=== PATIENT | male | born 1945 | race Caucasian/White ===

== ENCOUNTER → 2018-03-26 14:49 | Outpatient (CLI) | payer MEDICARE, SELFPAY ==
[2018-03-26 18:22] LABS: Hemoglobin A1c 6.1 % (4.2-6.3)
[2018-03-26 18:28] LABS: AST(SGOT) 27 U/L (15-37); Alanine Aminotransfer ALT/SGPT 38 U/L (16-61); Albumin, Serum 3.7 g/dL (3.2-5.0); Alkaline Phosphatase 95 U/L (45-117); Bilirubin, Direct 0.06 mg/dL (0.00-0.30); Cholesterol 110 mg/dL (200); Globulin 4.5 g/dL (2.2-4.2); High Density Lipoprotein 37 mg/dL; Protein, Total 8.2 g/dL (6.4-8.2); Triglycerides 140 mg/dL; Very Low Density Lipoprotein 28 mg/dL (5-40)
== END ==
PROVIDERS: Family Provider Family Medicine; PCP Family Medicine; Visit Provider Family Medicine
DX: E78.00 Pure hypercholesterolemia, unspecified (principal); E11.9 Type 2 diabetes mellitus without complications
CPT/HCPCS: 36415; 80061; 80076; 83036

== ENCOUNTER → 2018-09-28 14:16 | Outpatient (CLI) | payer MEDICARE, SELFPAY ==
[2018-09-28 15:19] LABS: Absolute Lymphocyte Count 2.19 X10^3/ul (0.83-4.51); Basophil# 0.05 X10^3/uL; Basophil% 0.6 % (0-1); Eosinophil# 0.33 X10^3/uL; Eosinophils% 3.9 % (0-5); Hematocrit 43.8 % (40-54); Hemoglobin 14.9 g/dl (13.0-16.5); Lymphocyte # 2.19 X10^3/ul (4.0); Lymphocyte % 26.2 % (19-41); Mean Platelet Vol. 9.1 fl (6.2-12.0); Monocyte% 9.6 % (0-10); Neutrophil # 4.97 X10^3/uL (2.7-7.7); Neutrophil % 59.5 % (47-70); Platelet Count 272 K/mm3 (150-450); RBC Distribution Width CV 13.1 % (11.6-14.6); RBC Distribution Width SD 43.7 fl (35.1-43.9); Red Blood Count 4.66 M/mm3 (4.6-6.2); White Blood Count 8.4 K/mm3 (4.4-11.0)
[2018-09-28 15:22] LABS: Glucose, Dipstick Normal (Normal); Ketone-Dipstick Negative (Negative); Leukocyte Esterase-Dipstick 25 /ul (Negative); Nitrite-Dipstick Negative (Negative); Occult Blood-Urine Negative /ul (Negative); POSITIVE COUNT NO; POSITIVE DIFFERENTIAL NO; POSITIVE MORPHOLOGY NO; Protein-Dipstick 30 mg/dl (Negative); Urine Bilirubin Dipstick Negative (Negative); Urine Urobilinogen Normal (Normal)
[2018-09-28 15:26] LABS: ALB/GLOB Ratio 0.8 RATIO (0.9-2.4); AST(SGOT) 20 U/L (15-37); Alanine Aminotransfer ALT/SGPT 50 U/L (16-61); Albumin, Serum 3.6 g/dL (3.2-5.0); Alkaline Phosphatase 90 U/L (45-117); Anion Gap 11 (5-15); BUN 26 mg/dL (7-18); BUN/Creat Ratio 21.1 RATIO (10-20); Calcium,Total 8.6 mg/dL (8.5-10.1); Chloride 101 mmol/L (98-107); Cholesterol 128 mg/dL (200); Creatinine, Serum 1.23 mg/dL (0.70-1.30); EST Glomerular Filtration Rate 61 mL/min (>60); Est Glom Filt Rate - Afr Amer 74 mL/min (>60); Globulin 4.8 g/dL (2.2-4.2); Glucose 91 mg/dL (74-106); High Density Lipoprotein 33 mg/dL; Potassium 4.4 mmol/L (3.5-5.1); Protein, Total 8.4 g/dL (6.4-8.2); Sodium Level 137 mmol/L (136-145); Triglycerides 235 mg/dL; Very Low Density Lipoprotein 47 mg/dL (5-40)
[2018-09-28 15:29] LABS: Hemoglobin A1c 6.3 % (4.2-6.3)
[2018-09-28 15:36] LABS: Color, Urine YELLOW (Yellow)
[2018-09-28 15:37] LABS: Urine Clarity Clear (Clear)
== END ==
PROVIDERS: Family Provider Family Medicine; PCP Family Medicine; Referring Provider Family Medicine; Visit Provider Family Medicine
DX: Z00.00 Encounter for general adult medical examination without abnormal findings (principal); E78.00 Pure hypercholesterolemia, unspecified; I10 Essential (primary) hypertension; E11.9 Type 2 diabetes mellitus without complications
CPT/HCPCS: 36415; 80053; 80061; 81002; 83036; 85025

== ENCOUNTER → 2019-03-29 14:05 | Outpatient (CLI) | payer MEDICARE, SELFPAY ==
[2019-03-29 15:30] LABS: AST(SGOT) 34 U/L (15-37); Alanine Aminotransfer ALT/SGPT 59 U/L (16-61); Albumin, Serum 3.7 g/dL (3.2-5.0); Alkaline Phosphatase 83 U/L (45-117); Bilirubin, Direct 0.13 mg/dL (0.00-0.30); Cholesterol 124 mg/dL (200); Globulin 4.6 g/dL (2.2-4.2); High Density Lipoprotein 34 mg/dL; Protein, Total 8.3 g/dL (6.4-8.2); Triglycerides 171 mg/dL; Very Low Density Lipoprotein 34 mg/dL (5-40)
[2019-03-29 15:41] LABS: Hemoglobin A1c 6.9 % (4.2-6.3)
== END ==
PROVIDERS: Family Provider Family Medicine; PCP Family Medicine; Referring Provider Family Medicine; Visit Provider Family Medicine
DX: E78.00 Pure hypercholesterolemia, unspecified (principal); E11.9 Type 2 diabetes mellitus without complications
CPT/HCPCS: 36415; 80061; 80076; 83036

== ENCOUNTER → 2019-09-29 08:48 | Outpatient (CLI) | payer MEDICARE, SELFPAY ==
[2019-09-29 09:49] LABS: Color, Urine Yellow (Yellow); Glucose, Dipstick Normal (Normal); Ketone-Dipstick Negative (Negative); Leukocyte Esterase-Dipstick 25 /ul (Negative); Nitrite-Dipstick Negative (Negative); Occult Blood-Urine Negative /ul (Negative); Protein-Dipstick 30 mg/dl (Negative); Urine Bilirubin Dipstick Negative (Negative); Urine Clarity Clear (Clear); Urine Urobilinogen Normal (Normal)
[2019-09-29 09:57] LABS: Absolute Neutrophil Count 7.2 X10^3/uL (2.0-7.7); Basophil# 0.09 X10^3/uL; Basophil% 0.9 % (0-1); Eosinophil# 0.24 X10^3/uL; Eosinophils% 2.4 % (0-5); Hematocrit 42.9 % (40-54); Hemoglobin 14.3 g/dL (13.0-16.5); Lymphocyte % 15.8 % (19-41); Mean Corp Hgb Conc 33.3 g/dL (32-36); Mean Corpuscular Hgb 32.6 pg (27.0-32.0); Mean Corpuscular Volume 97.9 fL (80-94); Mean Platelet Vol. 8.9 fl (6.2-12.0); Monocyte# 0.97 X10^3/uL; Monocyte% 9.6 % (0-10); NRBC Flagged by Analyzer 0 % (0-5); Neutrophil # 7.16 X10^3/uL (2.7-7.7); Neutrophil % 70.5 % (47-70); Platelet Count 264 K/mm3 (150-450); RBC Distribution Width CV 12.6 % (11.6-14.6); RBC Distribution Width SD 45.8 fl (35.1-43.9); Red Blood Count 4.38 M/mm3 (4.6-6.2); White Blood Count 10.1 K/mm3 (4.4-11.0)
[2019-09-29 10:24] LABS: Hemoglobin A1c 6.8 % (4.2-6.3)
[2019-09-29 10:45] LABS: ALB/GLOB Ratio 0.7 RATIO (0.9-2.4); AST(SGOT) 24 U/L (15-37); Alanine Aminotransfer ALT/SGPT 51 U/L (16-61); Albumin, Serum 3.4 g/dL (3.2-5.0); Alkaline Phosphatase 90 U/L (45-117); Anion Gap 9 (5-15); BUN 32 mg/dL (7-18); Calcium,Total 8.5 mg/dL (8.5-10.1); Chloride 103 mmol/L (98-107); Cholesterol 108 mg/dL (200); Creatinine, Serum 1.39 mg/dL (0.70-1.30); EST Glomerular Filtration Rate 53 mL/min (>60); Est Glom Filt Rate - Afr Amer 64 mL/min (>60); Glucose 130 mg/dL (74-106); High Density Lipoprotein 30 mg/dL; PSA,Total - Annual Screen 0.77 ng/mL (0.00-4.00); Potassium 4.1 mmol/L (3.5-5.1); Protein, Total 8.4 g/dL (6.4-8.2); Sodium Level 138 mmol/L (136-145); Triglycerides 142 mg/dL; Very Low Density Lipoprotein 28 mg/dL (5-40)
== END ==
PROVIDERS: Family Provider Family Medicine; PCP Family Medicine; Referring Provider Family Medicine; Visit Provider Family Medicine
DX: Z00.00 Encounter for general adult medical examination without abnormal findings (principal); Z12.5 Encounter for screening for malignant neoplasm of prostate; E78.00 Pure hypercholesterolemia, unspecified; I10 Essential (primary) hypertension; E11.9 Type 2 diabetes mellitus without complications
CPT/HCPCS: 36415; 80053; 80061; 81002; 83036; 84153; 85025; G0103

== ENCOUNTER → 2021-10-22 12:37 | Outpatient (CLI) | payer MEDICARE, SELFPAY ==
[2021-10-22 15:16] LABS: Absolute Lymphocyte Count 2.38 X10^3/uL (0.83-4.51); Absolute Neutrophil Count 5.1 X10^3/uL (2.0-7.7); Basophil# 0.09 X10^3/uL; Eosinophil# 0.38 X10^3/uL; Eosinophils% 4.3 % (0-5); Hematocrit 40.8 % (40-54); Hemoglobin 14.8 g/dL (13.0-16.5); Lymphocyte # 2.38 X10^3/ul (0.83-4.51); Lymphocyte % 26.8 % (19-41); Mean Corp Hgb Conc 36.3 g/dL (32-36); Mean Corpuscular Hgb 33.9 pg (27.0-32.0); Mean Corpuscular Volume 93.6 fL (80-94); Mean Platelet Vol. 9.8 fl (6.2-12.0); Monocyte# 0.88 X10^3/uL; Monocyte% 9.9 % (0-10); NRBC Flagged by Analyzer 0 % (0-5); Neutrophil # 5.09 X10^3/uL (2.7-7.7); Neutrophil % 57.2 % (47-70); Platelet Count 281 K/mm3 (150-450); RBC Distribution Width CV 12.9 % (11.6-14.6); RBC Distribution Width SD 44.1 fl (35.1-43.9); Red Blood Count 4.36 M/mm3 (4.6-6.2); White Blood Count 8.9 K/mm3 (4.4-11.0)
[2021-10-22 15:34] LABS: Hemoglobin A1c 7.5 % (3.8-5.6)
[2021-10-22 15:37] LABS: ALB/GLOB Ratio 0.6 RATIO (0.9-2.4); AST(SGOT) 24 U/L (15-37); Alanine Aminotransfer ALT/SGPT 38 U/L (16-61); Albumin, Serum 3.1 g/dL (3.2-5.0); Alkaline Phosphatase 100 U/L (45-117); Anion Gap 8 (5-15); BUN 24 mg/dL (7-18); BUN/Creat Ratio 18.9 RATIO (10-20); Calcium,Total 8.7 mg/dL (8.5-10.1); Chloride 101 mmol/L (98-107); Cholesterol 125 mg/dL (200); Creatinine, Serum 1.27 mg/dL (0.70-1.30); EST Glomerular Filtration Rate 58 mL/min (>60); Est Glom Filt Rate - Afr Amer 71 mL/min (>60); Globulin 5.3 g/dL (2.2-4.2); Glucose 129 mg/dL (74-106); High Density Lipoprotein 33 mg/dL; Protein, Total 8.4 g/dL (6.4-8.2); Sodium Level 135 mmol/L (136-145); Triglycerides 166 mg/dL; Very Low Density Lipoprotein 33 mg/dL (5-40)
== END ==
PROVIDERS: PCP Family Medicine; Referring Provider Family Medicine; Visit Provider Family Medicine
DX: Z00.00 Encounter for general adult medical examination without abnormal findings (principal); E78.00 Pure hypercholesterolemia, unspecified; I10 Essential (primary) hypertension; E11.9 Type 2 diabetes mellitus without complications; Z12.5 Encounter for screening for malignant neoplasm of prostate
CPT/HCPCS: 36415; 80053; 80061; 83036; 84153; 85025; G0103

== ENCOUNTER → 2023-01-31 | Outpatient (CLI) | payer MEDICARE, SELFPAY ==
--- NOTE | 2023-02-11 11:00 | PET_ITS ---
EXAMINATION: FDG PET-CT INDICATIONS: A 77-year-old male with history of pulmonary nodularity. COMPARISON EXAMINATION: None available INDEX LESION SIZE SUV INTERPRETATION Right upper lung field, right upper lobe 26.1-mm 4.9 Fulfills quantitative criteria for viable neoplasm, histopathologic analysis recommended Right mid lung field posteriorly, right lower lobe 23.1-mm 3.7 Fulfills quantitative criteria for viable neoplasm, histopathologic analysis recommended TECHNIQUE: Following the intravenous administration of 14.35 mCi of F-18 deoxyglucose via the right antecubital fossa, multiplanar image acquisitions of the neck, chest, abdomen and pelvis to level of mid thigh, obtained at one hour post radiopharmaceutical administration contemporaneously interpreted with the current CT of the neck, chest, abdomen and pelvis, to level of mid thigh, dated 02/11/23 via coregistration reveals: BLOOD GLUCOSE LEVEL:?? 122 mg/dl?HEIGHT:?67 inches?WEIGHT: 280 lbs. FINDINGS: Head/Neck: There is no evidence of abnormal increased glucose metabolism in the pharyngeal mucosal space, parapharyngeal space, bilateral-lateral and anterior neck, hypopharynx and distribution of the laryngeal structures. The visualized portion of the cerebral cortical-subcortical structures demonstrate symmetric and preserved glucose metabolism. Prominent uptake is noted in the oral cavity associated with dental hardware placement, metallic reconstruction artifact. (Rosmery et al, AJR 179:1337, 2002). CHEST: An increase in radiopharmaceutical concentration is noted in two separate locations within the right upper-mid lung field to include both the right upper and lower lobes. The right upper lobe abnormality demonstrates a calculated maximal standard uptake value of 4.9. The maximal axial diameter of the metabolic, morphologic abnormality is 26.1-mm. The right lower lobe hypermetabolic focus demonstrates a calculated maximal standard uptake value of 3.7. The maximal axial diameter is 23.1-mm. Prominent uptake is noted in the descending thoracic aorta commensurate with activated leukocytes associated atherosclerotic plaque formation. Pertinent chest CT findings are as follows. There is atherosclerotic calcification defined in the thoracic aorta without evidence of dilatation-aneurysm formation. Coronary arterial calcification is observed. Mediastinal and bilateral subcentimeter axillary soft tissue densities are ametabolic. Several additional parenchymal densities noted in the bilateral hemithorax are non-glucose avid. Abdomen/Pelvis: Normal physiologic distribution of the radiopharmaceutical is apparent in the hepatic (6.02) and splenic parenchyma, both renal units, bladder and visualized intestinal tract. Pertinent abdomen and pelvis CT findings are as follows. Colonic diverticulosis is noted without evidence of diverticulitis. There is atherosclerotic calcification defined in the abdominal aorta without evidence of dilatation-aneurysm formation. Abdominal-pelvic arterial calcification is observed. Calcification appears evident in the pancreatic body. Bilateral inguinal soft tissue densities are ametabolic. Skeletal: Asymmetric muscle tension artifact is noted at the distribution of the left subscapularis muscle. Degenerative changes are noted in the cervical, thoracic and lumbar spine without evidence of increased radiopharmaceutical concentration. There are no well-defined sclerotic-lytic changes manifest on review of the appendicular-axial skeletal structures. PET/PET/CT Tumor Base -Thigh Init IMPRESSION: 1. ABNORMAL EXAMINATION INDICATIVE OF MALIGNANT VIABLE NEOPLASM. 2. Increased radiopharmaceutical concentration noted in both the posterior segment of the right upper lobe and superior segment of the right lower lobe fulfill quantitative criteria for viable neoplasm. Histopathologic analysis is recommended. (Valle et al, Annals of Internal Medicine, 138:724, 2003). 3. No other quantitatively significant hypermetabolic abnormalities are noted. Electronic Signature Primitivo Hummel D.O. Electronically Signed: Primitivo Hummel, at 10:31 EDT ,
== END | disposition home or self-care (01) ==
LOC: MTLAB 11:53
PROVIDERS: PCP Family Medicine; Referring Provider Internal Medicine Pulmonary Disease; Visit Provider Internal Medicine Pulmonary Disease
DX: R05.9 Cough, unspecified (principal)
CPT/HCPCS: 87070; 87205

== ENCOUNTER → 2023-02-11 | Outpatient (CLI) | payer MEDICARE, SELFPAY | END | disposition home or self-care (01) | LOC: ONC 10:33 | PROVIDERS: PCP Family Medicine; Referring Provider Internal Medicine Pulmonary Disease; Visit Provider Internal Medicine Pulmonary Disease | DX: R91.8 Other nonspecific abnormal finding of lung field (principal) | CPT/HCPCS: 78815; A9552 ==

== ENCOUNTER 2023-02-19 13:04 | Day surgery (SDC) | payer MEDICARE, SELFPAY ==
[2023-02-19] VITALS (13 sets, daily range): BP systolic 106–153; BP diastolic 46–125; PULSE 70–83; RESP 18–22; TEMP 36.3–36.6; O2SAT 84–96; BMI 46.0
--- NOTE | 2023-02-19 | FLU_PTH ---
PATIENT: ROSEMARY FERNÁNDEZ LOC: EN U#:[id number] AGE/SX: 77/M ROOM: RE02/19/[address]: Dr. Rosemary Doshi MD : 1945 BED: DIS: 02/19/2023 SPEC #: [id number] RECD: 02/19/23 16:18 STATUS: SMITA [place] #: [id number] PHILLIP: 02/19/23 00:[address]: Rosemary Doshi V DEPT: CYTOLOGY RECD BY: Geovanna Dimas ENTERED: 02/20/23 08:06 SP TYPE: Fluid OTHR DR: Dr. Lyle Ruiz MD Tissues: A - Bronchus of right upper lobe B - Bronchus of right upper lobe C - Bronchus of right upper lobe Procedures: Special Stain Group II Surgery Specimen Level IV Cytospin Fluid Cytology Other HEADER OPERATION: Bronchoscopy with fluoroscopy (MAC), biopsies, washings, brushings PRE-OP DIAGNOSIS: Lung nodule TISSUE SUBMITTED: A - Right upper lobe lung smears x4, B - Right upper lobe lung brush, C - Right upper lobe lung bronchioalveolar lavage DIAGNOSIS CYTOLOGY A. Right upper lobe lung brushings (smears): Positive for malignant cells, favor non-small cell carcinoma. B. Right upper lobe lung brush (cytospin and cell block): Positive for malignant cells, favor non-small cell carcinoma. C. Right upper lobe lung bronchioalveolar lavage (cytospin and cell block): Rare atypical epithelial cells present. AM:julius 02/21/2023 COMMENT Please correlate with surgical specimen [id number]. Case has been reviewed in consultation with Dr. Boles who concurs with the above diagnosis. IDC:SJ CYTOLOGY STUDY Slides are reviewed. CYTOLOGY GROSS A - Received are four smears labeled with the patient's name and designated per the requisition as RUL. Submitted for staining. B - Received is a metallic endoscopic cytobrush with adherent minute fragments of liu-red tissue brush in 2 ml of clear red fluid and labeled with the patient's name and and designated per the requisition as brush RUL. The material is dislodged from the brush and submitted for cytology preparation including cell block. C - Received is 25 ml of red bloody cloudy fluid labeled with the patient's name and and designated per the requisition as BAL RUL. Submitted for cytology preparation including cell block. / julius 02/20/2023 TC:0 CPT: 28922, 75159 x2, 05473 x2
--- NOTE | 2023-02-19 | LUNG_PTH ---
PATIENT: ROSEMARY FERNÁNDEZ LOC: EN U#:[id number] AGE/SX: 77/M ROOM: RE02/19/[address]: Dr. Rosemary Doshi MD : 1945 BED: DIS: 02/19/2023 SPEC #: [id number] RECD: 02/19/23 16:18 STATUS: SMITA MORRISONSteven #: [id number] PHILLIP: 02/19/23 00:[address]: Rosemary Doshi V DEPT: SURGICAL PATHOLOGY RECD BY: Geovanna Dimas ENTERED: 02/20/23 08:05 SP TYPE: LUNG BX OTHR DR: Dr. Lyle Ruiz MD Tissues: Lung, NOS Procedures: Surgery Specimen Level IV HEADER OPERATION: Bronchoscopy with fluoroscopy (MAC), biopsies, washings, brushings PRE-OP DIAGNOSIS: Lung nodule TISSUE SUBMITTED: Right upper lobe lung biopsy MICROSCOPIC DIAGNOSIS Right upper lobe lung, biopsy: Non-small cell carcinoma, squamous cell carcinoma. See comment. AM:julius 02/21/2023 AM:julius 03/20/2023 COMMENT Please correlate with cytology specimen [id number]. Immunohistochemistry ([id number]) supports the above diagnosis. This case was reviewed and diagnosis discussed with Dr. Jones on 03/20/2023. MICROSCOPIC DESCRIPTION Slides are reviewed. GROSS DESCRIPTION Received in fixative is one container labeled with the patient's name and designated right upper lobe biopsy. The specimen consists of multiple irregular fragments of light liu soft tissue that in aggregate measure 1.0 x 0.3 x 0.1 cm. The specimen is totally submitted in one cassette. / SJ:julius 02/20/2023 TC:0 CPT: 18513 ADDENDUM ADDENDUM ADDENDUM ADDENDUM ADDENDUM ADDENDUM ADDENDUM ADDENDUM 03/31/2023 14:54 ADDENDUM 03/31/2023 14:54 ADDENDUM 03/31/2023 14:54 ADDENDUM 03/31/2023 14:54 ADDENDUM 05/21/2023 09:21 ADDENDUM 03/31/2023 14:54 [facility] NGS GENE FUSION PANEL FROM [employer] INTERPRETATION: NEGATIVE: No pathogenic gene fusions detected involving ALK, OSIRIS, BRAF, CCND1, EGFR, FGFR1, FGFR2, FGFR3, MET, NRG1, NTRK1, NTRK2, NTRK3, PPARG, RAF1, RET, ROS1 or THADA. Please see complete report in e-chart or EMR PD-L1 (KEYTRUDA) IMMUNOHISTOCHEMICAL ANALYSIS FROM [employer] RESULTS: Tumor proportion score: <1% / Negative Please see complete report in e-chart or EMR
--- NOTE | 2023-02-19 | IMM_PTH ---
PATIENT: ROSEMARY FERNÁNDEZ LOC: EN U#:[id number] AGE/SX: 77/M ROOM: RE02/19/[address]: Dr. Rosemary Doshi MD : 1945 BED: DIS: 02/19/2023 SPEC #: [id number] RECD: 02/21/23 13:20 STATUS: SMITA RESteven #: [id number] PHILLIP: 02/19/23 00:[address]: Rosemary Doshi V DEPT: IMMUNOHISTOCHEMISTRY RECD BY: Homa Carlton ENTERED: 02/21/23 13:22 SP TYPE: IMMUNO OTHR DR: Dr. Lyle Ruiz MD Tissues: Right upper lobe of lung, NOS Procedures: Synapto (add) RCC (add) NAPSIN A (add) CD56 (add) CHROMO (add) CK20 (add) CK5-6 (add) CK7 (add) CK8 (add) HEP PAR (add) KI-67 (add) P53 (add) TTF1 (add) Pankeratin (initial) P40 (add) PSAP (add) NSE (add) S-100 (add) PHYSICIAN & INSTITUTION [place] [id number] SPECIMEN INFORMATION: Tissue Source: Right upper lobe lung biopsy Clinical Info: Lung nodule Specimen Number: [id number] CPT code: 24989, 33918 x17 METHODOLOGY: Deparaffinized sections of prefer/formalin-fixed tissue or PAP/DQ stained slides are incubated with monoclonal/polyclonal antibodies/oligonucleotide probes. Localization is made via biotin free immunoperoxidase method. Appropriate controls are performed and reacted as expected. Results on target cell population are indicated in the following table: RESULTS: ANTIBODY / CLONE RESULT AE1-3 (AE1/AE3/PCK26) positive CK7 (OV-TL12/30) negative CK8 (53vvhwB03) positive CK20 (KS20.8) negative S-100 (4C4.9) negative CD56 (123C3.D5) negative Chromo (LK2H10) negative Synapto (polyclonal) negative NSE Neuron Specific Enolase negative TTF-1 (8G7G3/1) negative Napsin A (Rabbit Polyclonal) negative RCC (PN-15) negative PSAP (PASE/4LJ) negative CK5-6 (D5 & 1684) positive P40 (BC28) positive P53 (DO-7) positive, >90% Ki-67 (30-9) positive, 80% HepPar (OCh1E5) negative These tests were developed and their performance characteristics determined by [facility]. They may not have been cleared or approved by the U.S. Food and Drug Administration. The FDA has determined that such clearance or approval is not necessary. The above immunohistochemical/dualISH markers are ordered and reviewed by the Pathologist. INTERPRETATION: Right upper lobe lung, biopsy: Squamous cell carcinoma. AM:julius 02/24/2023 Case has been reviewed in consultation with Dr. Boles who concurs with the above diagnosis. IDC:SJ
--- NOTE | 2023-02-19 | LUNG_PTH ---
PATIENT: ROSEMARY FERNÁNDEZ LOC: EN U#:[id number] AGE/SX: 77/M ROOM: RE02/19/[address]: Dr. Rosemary Doshi MD : 1945 BED: DIS: 02/19/2023 SPEC #: [id number] RECD: 02/19/23 16:18 STATUS: SMITA MORRISONSteven #: [id number] PHILLIP: 02/19/23 00:[address]: Rosemary Doshi V DEPT: SURGICAL PATHOLOGY RECD BY: Geovanna Dimas ENTERED: 02/20/23 08:05 SP TYPE: LUNG BX OTHR DR: Dr. Lyle Ruiz MD Tissues: Lung, NOS Procedures: Surgery Specimen Level IV HEADER OPERATION: Bronchoscopy with fluoroscopy (MAC), biopsies, washings, brushings PRE-OP DIAGNOSIS: Lung nodule TISSUE SUBMITTED: Right upper lobe lung biopsy MICROSCOPIC DIAGNOSIS Right upper lobe lung, biopsy: Non-small cell carcinoma, adenocarcinoma. See comment. AM:julius 02/21/2023 COMMENT Please correlate with cytology specimen [id number]. Immunohistochemistry ([id number]) supports the above diagnosis. MICROSCOPIC DESCRIPTION Slides are reviewed. GROSS DESCRIPTION Received in fixative is one container labeled with the patient's name and designated right upper lobe biopsy. The specimen consists of multiple irregular fragments of light liu soft tissue that in aggregate measure 1.0 x 0.3 x 0.1 cm. The specimen is totally submitted in one cassette. / SJ:julius 02/20/2023 TC:0 CPT: 57951
[2023-02-19] MEDS: Lactated Ringers 1,000 ML 15 ML IV (13:52)
[2023-02-19 14:20] LABS: Bedside Glucose 125 mg/dL (74-106)
[2023-02-19] MEDS: Phenylephrine 0.25% 15 ML NASAL.SRY 15 SPRAY NASAL (14:58)
[2023-02-19] MEDS: Lidocaine 2% (5ml sdv) 5 ML VIAL.MPF (15:52)
--- NOTE | 2023-02-19 16:07 | OP.BRONCH_ITS ---
Patient Name: Sampson Matias Procedure Date: 02/19/2023 2:43 PM Date of : 1945 Age: 77 Procedure: Bronchoscopy Indications: Right upper lobe nodule Providers: Sampson Doshi MD Referring MD: Lyle Ruiz Medicines: Monitored Anesthesia Care Complications: No immediate complications Procedure: Pre-Anesthesia Assessment: - A History and Physical has been performed. Patient meds and allergies have been reviewed. The risks and benefits of the procedure and the sedation options and risks were discussed with [Consent Obtained From]. All questions were answered and informed consent was obtained. Patient identification and proposed procedure were verified prior to the procedure by the nurse in the pre-procedure area. Mental Status Examination: alert and oriented. Airway Examination: small/crowded oropharyngeal airway and retrognathia. Respiratory Examination: clear to auscultation. CV Examination: RRR, no murmurs, no S3 or S4. ASA Grade Assessment: II - A patient with mild systemic disease. After reviewing the risks and benefits, the patient was deemed in satisfactory condition to undergo the procedure. The anesthesia plan was to use monitored anesthesia care (MAC). Immediately prior to administration of medications, the patient was re-assessed for adequacy to receive sedatives. The heart rate, respiratory rate, oxygen saturations, blood pressure, adequacy of pulmonary ventilation, and response to care were monitored throughout the procedure. The physical status of the patient was re-assessed after the procedure. After I obtained informed consent, the scope was passed under direct vision. Throughout the procedure, the patient's blood pressure, pulse, and oxygen saturations were monitored continuously. The bronchoscope was introduced through the left nostril and advanced to the tracheobronchial tree of both lungs. The procedure was accomplished without difficulty. The patient tolerated the procedure well. The total duration of the procedure was 45 minutes. Moderate Sedation: Moderate (conscious) sedation was personally administered by an anesthesia professional. The following parameters were monitored: oxygen saturation, heart rate, blood pressure, respiratory rate, EKG, adequacy of pulmonary ventilation, and response to care. Findings: The endotracheal tube is in good position. The visualized portion of the trachea is of normal caliber. The ramo is sharp. The tracheobronchial tree was examined to at least the first subsegmental level. Bronchial mucosa and anatomy are normal; there are no endobronchial lesions, and no secretions. Transbronchial biopsies of a nodule were performed in the posterior segment of the right upper lobe using forceps and sent for cell count, bacterial culture, viral smears & culture, and fungal & AFB analysis and cytology, routine cytology and histopathology examination. The procedure was guided by fluoroscopy. Transbronchial biopsy technique was selected because the sampling site was not visible endoscopically. Six biopsy passes were performed. Six biopsy samples were obtained. Fluoroscopy guided transbronchial brushings of a nodule were obtained in the posterior segment of the right upper lobe with a cytology brush and sent for routine cytology. One sample was obtained. Impression: - Right upper lobe nodule - The airway examination was normal. - Transbronchial lung biopsies were performed. - Transbronchial brushings were obtained. Recommendation: - Await test results. Procedure Code(s): --- Professional --- 99399, Bronchoscopy, rigid or flexible, including fluoroscopic guidance, when performed; with transbronchial lung biopsy(s), single lobe 28134, Bronchoscopy, rigid or flexible, including fluoroscopic guidance, when performed; with brushing or protected brushings Diagnosis Code(s): --- Professional --- R91.1, Solitary pulmonary nodule CPT copyright 2017 [employer]. All rights reserved. The codes documented in this report are preliminary and upon hiv counselor review may be revised to meet current compliance requirements. MD Sampson Rodriguez MD 02/19/2023 4:06:49 PM This report has been signed electronically. Number of Addenda: 0 Note Initiated On: 02/19/2023 2:43 PM
[2023-02-19] MEDS: Lidocaine Jelly 2% 20 ML Syringe (URO-JET) 1 APPLIC (16:12)
--- NOTE | 2023-02-19 16:15 | RAD_ITS ---
INDICATION: check for pnuemo post bronchoscopy EXAMINATION/TECHNIQUE: X-RAY - XR Chest 1 View COMPARISON: 02/11/2023 FINDINGS: LINES/DEVICES: None. LUNGS: Right upper lung masses redemonstrated. No consolidation, edema or effusion. No pneumothorax. MEDIASTINUM AND CARDIOVASCULAR STRUCTURES: Cardiac silhouette not enlarged. Prominent cardiophrenic. Central airways and mediastinal contour are unremarkable. BONES AND SOFT TISSUES: Unremarkable. RAD/Chest 1 View (Portable) IMPRESSION: No radiographic evidence of pneumothorax or other acute cardiopulmonary disease. Electronically Signed: Navarro Beckman MD at 16:29 EDT ,
[2023-02-19 16:20] LABS: Cytology, Body Fluid / CSF SEE PATHOLOGY REPORT
[2023-02-19 16:22] LABS: Cytology, Body Fluid / CSF SEE PATHOLOGY REPORT
--- NOTE | 2023-02-19 16:45 | SUR.PHASEI ---
UNABLE TO WEAN O2 s/p BRONCHOSCOPY w/ WASHINGS/BRUSHINGS/BIOPSY. DENIES ANY CHEST PAIN, SOB, DIFFICULTY BREATHING. OCCASIONAL MOIST COUGH w/ WHITE SPUTUM STREAKED w/ BLOOD. MILD CYANOSIS TO LIPS. DR LIPSCOMB NOTIFIED, ORDERED DUONEB AEROSOL TX.
[2023-02-19] MEDS: Ipratropium/Albuterol Sulfate 3 ML AMPUL.NEB INHALATION (17:03)
--- NOTE | 2023-02-19 18:50 | SUR.PHASEI ---
DR MERCHANT TO RETURN PAGE, AWARE SPO2 BETWEEN 80-89% ON ROOM AIR AFTER DUONEB, STANDING AT BEDSIDE AND MARCHING IN PLACE, USING INCENTIVE SPIROMETRY, COUGHING & DEEP BREATHING. PATIENT HAS BEEN IN PACU 2 HOURS, 40 MINUTES WITHOUT IMPROVEMENT OF O2 ON ROOM AIR. REPORTEDLY ADMITTING RN HAD TO ENCOURAGE PATIENT TO PERFORM AGGRESSIVE COUGHING/DEEP BREATHING EARLIER TODAY TO GET SpO2 ABOVE 92%. DR MERCHANT ORDERED FOR PATIENT TO RETURN TO HIS OFFICE TOMORROW MORNING FOR AN OXYGEN CHECK, USE INCENTIVE SPIROMETER [10 TIMES] WITH EVERY COMMERCIAL ON TELEVISION, GO TO E.R. IMMEDIATELY FOR ANY INCREASING SHORTNESS OF BREATH OR DIFFICULTY BREATHING. PATIENT REPEATEDLY STATES I FEEL FINE... I FEEL THE SAME WHEN I CAME IN TODAY... I DON'T SEE WHAT THE BIG DEAL IS. ATTEMPTED TO EDUCATE ON THE DANGERS OF CHRONIC UNTREATED HYPOXIA.
== END 2023-02-19 18:56 | disposition home or self-care (01) ==
LOC: EN 13:07 → AC 13:07
PROVIDERS: PCP Family Medicine; Referring Provider Family Medicine; Visit Provider Internal Medicine Pulmonary Disease
PROC: 0BJ08ZZ Inspection of Tracheobronchial Tree, Via Natural or Artificial Opening Endoscopic (ICD-10-PCS; CPT 31622; principal; 2023-02-19 14:00)
DX: C34.11 Malignant neoplasm of upper lobe, right bronchus or lung (principal); J44.9 Chronic obstructive pulmonary disease, unspecified; E11.8 Type 2 diabetes mellitus with unspecified complications; Z68.42 Body mass index [BMI] 45.0-49.9, adult; E78.00 Pure hypercholesterolemia, unspecified; E66.9 Obesity, unspecified; I10 Essential (primary) hypertension; Z86.73 Personal history of transient ischemic attack (TIA), and cerebral infarction without residual deficits; Z79.01 Long term (current) use of anticoagulants; Z79.899 Other long term (current) drug therapy; Z87.891 Personal history of nicotine dependence
CPT/HCPCS: 31628; 31623; 71045; 76000; 82962; 87015; 87070; 87077; 87116; 87186; 87205; 87206; 88108; 88161; 88305; 88313; 88341; 88342; J7120; J2405

== ENCOUNTER 2023-04-18 15:57 | Observation (INO) | payer MEDICARE, SELFPAY ==
--- NOTE | 2023-04-14 12:02 | HP.PCM_ITS ---
[facility] - General General Date of Service: 04/18/23 [facility] Narrative The patient is a 77-year-old male who initially presented to the outpatient pulmonary clinic on April 08 to be evaluated for a staging EBUS secondary to a recent diagnosis of non-small cell lung cancer. The patient is currently followed by Dr. Doshi of pulmonary medicine.? CT chest without contrast dated January 2023 demonstrated a spiculated right upper lobe pulmonary nodule measuring 2.5 x 2.9 cm.? Additional note was made of a superior right paratracheal lymph node along with an inferior right paratracheal lymph node that were enlarged.? The patient has known COPD with an FEV1 of 63% predicted.? In follow-up from the aforementioned abnormal chest CT, the patient's primary quality assurance project manager performed a bronchoscopy with transbronchial lung biopsies and brushings.? The biopsy was positive for non-small cell carcinoma.? It should be noted that the patient had apneic episodes throughout the entire bronchoscopy.? The posterior oropharynx was narrowed. PET/CT completed in mid January 2023 demonstrated increased uptake in the posterior segment of the right upper lobe and superior segment of the right lower lobe.? No other hypermetabolic lesions were identified. The patient has an approximate 42-dtsp-fxpd smoking history, having quit completely in 2012.? The patient does not currently utilize any inhalers at his baseline.? He reported that those that were previously prescribed by Dr. Doshi never provided any symptom relief.? The patient is deemed to be high risk for sleep apnea.? Although he is currently scheduled for a polysomnogram, the patient reported that he is not interested in pursuing any additional work-up or treatment.? 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 Shortness of breath on exertion Squamous cell carcinoma of right lung TIA (transient ischemic attack) Wears dentures Wears glasses Home Medications clopidogrel 75 mg tablet (Plavix) 75 mg PO DAILY 02/17/23 [History Last Taken 02/17/23] simvastatin 20 mg tablet 20 mg PO QHS 02/17/23 [History Last Taken Unknown] valsartan 160 mg-hydrochlorothiazide 25 mg tablet 1 tab PO DAILY 02/17/23 [History Last Taken Unknown] ibuprofen 800 mg tablet 800 mg PO Q12H 04/02/23 [History Last Taken Unknown] Allergy/AdvReac Type Severity Reaction Status Date / Time No Known Allergies Allergy Verified 04/08/23 13:02 Social History (Updated 04/08/23 @ 13:04 by Sherly Lowe) Smoking Status: Former smoker Tobacco: How many years used: 55 Physical Exam Const alert and no apparent distress General Appearance: cooperative HEENT normocephalic and head/scalp atraumatic Eyes PERRL and EOMs intact bilaterally Neck supple General: trachea midline Resp Auscultation: diminished lung sounds Cardio regular rate and regular rhythm GI normal to inspection, nondistended, normoactive bowel sounds Extremity General Extremity: Negative for clubbing or cyanosis Skin General Skin Exam: no breakdown Neuro no focal motor deficits Psych cooperative and affect normal Assessment & Plan Assessment/Plan (1) Squamous cell carcinoma of right lung: PLAN: The patient was recently diagnosed with squamous cell carcinoma of the right upper lobe, following transbronchial needle biopsy by Dr. Doshi.? The patient has since completed an MRI brain and PET scan.? No hypermetabolic lesions were noted within the mediastinum or hilar regions.? However, given the size of the patient's primary lung tumor, will proceed with a staging EBUS.? Risks and benefits of the proposed procedure were discussed with the patient at length.? I explained to him that given his limited respiratory reserve and high risk for sleep apnea that there is a possibility he could require endotracheal intubation and hospital admission is a consequence of the proposed procedure.? The patient is still in agreement to proceed.?The patient will need to hold his Plavix for at least 5 days prior to the procedure.
[2023-04-14 16:04] LABS: Platelet Count 282 K/mm3 (150-450)
[2023-04-14 16:10] LABS: Prothrombin Time (Protime)PT. 12.9 SECONDS (11.7-14.9)
[2023-04-14 16:11] LABS: Partial Thromboplast Time 28.6 Seconds (24.1-36.2)
[2023-04-18] VITALS (22 sets, daily range): BP systolic 93–139; BP diastolic 43–78; PULSE 72–114; RESP 16–109; TEMP 36.1–36.7; O2SAT 83–100; BMI 46.2; BMI 47.7
--- NOTE | 2023-04-18 | ASPIG_PTH ---
PATIENT: ROSEMARY FERNÁNDEZ LOC: MS3 U#:[id number] AGE/SX: 77/M ROOM: [facility] [place] RE04/18/[address]: Dr. Darryn Liao MD : 1945 BED: 1 DIS: 04/19/2023 SPEC #: [id number] RECD: 04/18/23 13:24 STATUS: NADIASean REQ #: [id number] PHILLIP: 04/18/23 00:[address]: James Lee DEPT: CYTOLOGY RECD BY: Gonzalez Cagle ENTERED: 04/18/23 13:26 SP TYPE: ASP OUT OTHR DR: Dr. Lyle Ruiz MD Tissues: A - Lung, NOS B - Lung, NOS C - Lung, NOS D - Lung, NOS E - Lung, NOS F - Lung, NOS G - Lung, NOS H - Lung, NOS I - Lung, NOS Procedures: FNA Specimen Adequacy Special Stain Group II Surgery Specimen Level IV Cytology Other HEADER OPERATION: Endobronchial ultrasound PRE-OP DIAGNOSIS: Squamous cell carcinoma of right lung TISSUE SUBMITTED: A - EBUS, TBNA, site 4R #1, B - EBUS, TBNA, site 4R #2, C - EBUS, TBNA, site 7 #3, D - EBUS, TBNA, site 7 #4, E - EBUS, TBNA, site 10L #5, F - EBUS, TBNA, site 10L #6, G - EBUS, TBNA, site 4R, H - EBUS, TBNA, site 7, I - EBUS, TBNA, site 10L DIAGNOSIS CYTOLOGY A. EBUS, TBNA, site 4R #1 (smears): Numerous lymphocytes are noted. Negative for malignant cells. Adequate for evaluation. B. EBUS, TBNA, site 4R #2 (smears): Numerous lymphocytes are noted. Negative for malignant cells. Adequate for evaluation. C. EBUS, TBNA, site 7 #3 (smears): Predominantly respiratory epithelial cells. Negative for malignant cells. D. EBUS, TBNA, site 7 #4 (smears): Predominantly respiratory epithelial cells. Negative for malignant cells. E. EBUS, TBNA, site 10L #5 (smears): Predominantly respiratory epithelial cells. Negative for malignant cells. F. EBUS, TBNA, site 10L #6 (smears): Predominantly respiratory epithelial cells. Negative for malignant cells. G. EBUS, TBNA, site 4R fluid (cell block): Negative for malignancy. See cytology study. H - EBUS, TBNA, site 7 fluid (cell block): Negative for malignancy. See cytology study. I - EBUS, TBNA, site 10L fluid (cell block): Negative for malignancy. See cytology study. SJ:julius 04/21/2023 COMMENT The specimen is evaluated at the time of EBUS by Dr. Boles. Rapid On-Site Evaluation: A. EBUS, TBNA, site 4R #1: Numerous lymphocytes are noted. Negative for malignant cells. Adequate for evaluation. B. EBUS, TBNA, site 4R #2: Numerous lymphocytes are noted. Negative for malignant cells. Adequate for evaluation. C. EBUS, TBNA, site 7 #3: Predominantly respiratory epithelial cells. Negative for malignant cells. D. EBUS, TBNA, site 7 #4: Predominantly respiratory epithelial cells. Negative for malignant cells. E. EBUS, TBNA, site 10L #5: Predominantly respiratory epithelial cells. Negative for malignant cells. F. EBUS, TBNA, site 10L #6: Predominantly respiratory epithelial cells. Negative for malignant cells. Please make reference to previous specimens ([id number]) right upper lobe lung biopsy with diagnosis of ?non-small cell carcinoma, squamous cell carcinoma? and ([id number]) right upper lobe lung brushing and right upper lobe lung brush with diagnosis of ?positive for malignant cells, favor non-small cell carcinoma.? CYTOLOGY STUDY Slides are reviewed. G-I. The specimens consist of lymphocytes and respiratory epithelial cells. CYTOLOGY GROSS A - Received labeled with the patient's name and and designated EBUS, TBNA, site 4R #1. The specimen consists of two stained smears for DOLORES (Rapid On-Site Evaluation). B - Received labeled with the patient's name and and designated EBUS, TBNA, site 4R #2. The specimen consists of two stained smears for DOLORES. C - Received labeled with the patient's name and and designated EBUS, TBNA, site 7 #3. The specimen consists of two stained smears for DOLORES. D - Received labeled with the patient's name and and designated EBUS, TBNA, site 7 #4. The specimen consists of two stained smears for DOLORES. E - Received labeled with the patient's name and and designated EBUS, TBNA, site 10L #5. The specimen consists of two stained smears for DOLORES. F - Received labeled with the patient's name and and designated EBUS, TBNA, site 10L #6. The specimen consists of two stained smears for DOLORES. G - Received in RPMI is 20 ml of pink, needle rinsed fluid labeled with the patient's name and and designated EBUS, TBNA, site 4R. The specimen is submitted for cell block preparation. H - Received in RPMI is 20 ml of pink, needle rinsed fluid labeled with the patient's name and and designated EBUS, TBNA, site 7. The specimen is submitted for cell block preparation. I - Received in RPMI is 20 ml of pink, needle rinsed fluid labeled with the patient's name and and designated EBUS, TBNA, site 10L. The specimen is submitted for cell block preparation. / SJ:rg 04/18/2023 TC:5 CPT: 33347 x3, 36229 x3, 61762 x6
[2023-04-18] MEDS: Lactated Ringers 1,000 ML 15 ML IV (11:20)
[2023-04-18 11:41] LABS: Bedside Glucose 141 mg/dL (74-106)
--- NOTE | 2023-04-18 13:07 | OP.BRONCH_ITS ---
Patient Name: Sampson Matias Procedure Date: 04/18/2023 12:02 PM Date of : 1945 Age: 77 Procedure: Bronchoscopy Indications: Mediastinal adenopathy, Known lung cancer Providers: James Lee MD Referring MD: James Lee MD Complications: No immediate complications Procedure: Pre-Anesthesia Assessment: - A History and Physical has been performed. Patient meds and allergies have been reviewed. The risks and benefits of the procedure and the sedation options and risks were discussed with the patient. All questions were answered and informed consent was obtained. Patient identification and proposed procedure were verified prior to the procedure by the physician and the nurse in the procedure room. Mental Status Examination: alert and oriented. Airway Examination: normal oropharyngeal airway. Respiratory Examination: clear to auscultation. CV Examination: normal. ASA Grade Assessment: III - A patient with severe systemic disease. After reviewing the risks and benefits, the patient was deemed in satisfactory condition to undergo the procedure. The anesthesia plan was to use general anesthesia. Immediately prior to administration of medications, the patient was re-assessed for adequacy to receive sedatives. The heart rate, respiratory rate, oxygen saturations, blood pressure, adequacy of pulmonary ventilation, and response to care were monitored throughout the procedure. The physical status of the patient was re-assessed after the procedure. After I obtained informed consent, the scope was passed under direct vision. Throughout the procedure, the patient's blood pressure, pulse, and oxygen saturations were monitored continuously. The ultrasound bronchoscope was introduced through the mouth, via laryngeal mask airway and advanced to the tracheobronchial tree. The bronchoscope was introduced through the mouth, via laryngeal mask airway and advanced to the tracheobronchial tree. The procedure was accomplished without difficulty. The patient tolerated the procedure well. Findings: The laryngeal mask airway is in good position. The vocal cords appear normal. The subglottic space is normal. The trachea is of normal caliber. The ramo is sharp. The tracheobronchial tree was examined to at least the first subsegmental level. Bronchial mucosa and anatomy are normal; there are no endobronchial lesions, and no secretions. The scope was withdrawn and replaced with the EBUS bronchoscope to accomplish the ultrasound examination. Lymph Nodes: An endobronchial ultrasound endoscope was utilized to systematically examine the right lower paratracheal region (level 4R), subcarinal mediastinum (level 7) and left hilar region (level 10L) in order to assist with fine needle aspiration. Lymph node sizing was performed via endobronchial ultrasound for known non-small cell lung cancer. Sampling by transbronchial needle aspiration was also performed using an Olympus EBUS-TBNA 21 gauge needle in the right lower paratracheal region (level 4R), subcarinal mediastinum (level 7) and left hilar region (level 10L) and sent for routine cytology. - The 10L (hilar) node was evaluated. Two samples with the needle were obtained. - The 7 (subcarinal) node was evaluated. Two samples with the needle were obtained. - The 4R (paratracheal) node was evaluated. Two samples with the needle were obtained. Impression: - Mediastinal adenopathy - Known lung cancer - The airway examination was normal. - Endobronchial ultrasound was performed. - Lymph node sampling was performed. Recommendation: - Await biopsy results. Procedure Code(s): --- Professional --- 69727, Bronchoscopy, rigid or flexible, including fluoroscopic guidance, when performed; with endobronchial ultrasound (EBUS) guided transtracheal and/or transbronchial sampling (eg, aspiration[s]/biopsy[ies]), 3 or more mediastinal and/or hilar lymph node stations or structures Diagnosis Code(s): --- Professional --- R59.0, Localized enlarged lymph nodes C34.90, Malignant neoplasm of unspecified part of unspecified bronchus or lung CPT copyright 2017 [employer]. All rights reserved. The codes documented in this report are preliminary and upon airbrush artist technical review may be revised to meet current compliance requirements. DO James Verdin MD 04/18/2023 1:06:45 PM This report has been signed electronically. Number of Addenda: 0 Note Initiated On: 04/18/2023 12:02 PM
[2023-04-18] MEDS: Ipratropium/Albuterol Sulfate 3 ML AMPUL.NEB INHALATION ×3 (13:40→23:20)
--- NOTE | 2023-04-18 14:20 | RAD_ITS ---
STUDY: X-RAY CHEST REASON FOR EXAM: Male, 77 years old. HYPOXIA TECHNIQUE: Single AP portable view of the chest. COMPARISON: Comparison is made with prior study dated February 19, 2023. FINDINGS: EKG electrodes are seen. Hyperinflation. There is a faint 2.9 cm x 3.9 cm nodule in the right upper lobe. Stable increased markings at the lung bases suggestive of scarring. There is borderline cardiomegaly. Normal mediastinum and soledad. Normal visualized pulmonary arteries. There is atherosclerotic calcification of the aortic arch with tortuosity. There are diffuse degenerative changes of the visualized thoracic spine. There is degenerative osteoarthritis of the bilateral shoulders. There is no demonstrated abnormality of the visualized soft tissue structures of the upper abdomen. RAD/Chest 1 View (Portable) IMPRESSION: Hyperinflation. Findings suggestive of scarring at the lung bases. 2.9 cm x 3.9 cm faint nodule in the right upper lobe. Correlation with a CT scan is recommended for further evaluation. Electronically Signed: Vance Cast MD at 14:40 EDT ,
--- NOTE | 2023-04-18 15:46 | HP.PCM.HOS_ITS ---
HPI - General General Date of Admission: 04/18/23 Date of Service: 04/18/23 Chief Complaint: hypoxia HPI Narrative ROSEMARY FERNÁNDEZ, is a 77 M with a PMH as outlined who presents via the ED On 04/18/2023 for outpatient EBUS. He had a CT of the chest without contrast in January 2023 which showed a spiculated right upper lobe pulmonary nodule m easuring 2.5 x 2.9 cm along with a superior right paratracheal lymph node with an inferior right paratracheal lymph node that were enlarged. He does have a history of COPD. He had bronchoscopy done by his primary manager licensing with transbronchial biopsies and brushings and biopsy was positive for non-small cell lung carcinoma. PET scan and CT of the chest done in mid January 2023 showed increased uptake in the posterior segment of the right upper lobe in the superior segment of the right lower lobe. Patient has had a history of smoking and has a [id number] smoking and quit in 2012. He has also been told he likely has sleep apnea but he has refused to follow up with any sleep studies on outpatient basis. He also had an MRI of the brain which showed no evidence of metastasis. Patient was brought in by the pulmonary service for staging EBUS on account of the size of the patient's primary lung tumor. He did have the EBUS on 04/18/2023. Patient was subsequently noted be weaned off of oxygen. He is therefore been admitted to be managed for hypoxia post EBUS. 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 Shortness of breath on exertion Squamous cell carcinoma of right lung TIA (transient ischemic attack) Wears dentures Wears glasses Home Medications clopidogrel 75 mg tablet (Plavix) 75 mg PO DAILY 02/17/23 [History Last Taken 04/12/23] simvastatin 20 mg tablet 20 mg PO QHS 02/17/23 [History Last Taken Unknown] valsartan 160 mg-hydrochlorothiazide 25 mg tablet 1 tab PO DAILY 02/17/23 [History Last Taken 04/18/23] ibuprofen 800 mg tablet 800 mg PO Q12H 04/02/23 [History Last Taken 04/18/23] Allergy/AdvReac Type Severity Reaction Status Date / Time No Known Allergies Allergy Verified 04/18/23 11:09 Social History (Updated 04/08/23 @ 13:04 by Sherly Lowe) Smoking Status: Former smoker Tobacco: How many years used: 55 ROS Constitutional Constitutional: Reports fatigue and malaise; Denies anorexia, change in weight, chills, fever(s) or weakness Eyes Eyes: Denies change in vision ENT HEENT: Denies dysphagia, headache(s) or nasal congestion Cardiovascular Cardiovascular: Reports dyspnea on exertion; Denies chest pain, edema, lightheadedness, orthopnea, palpitations, rapid heart rate or syncope Respiratory/Chest Respiratory/Chest: Reports dyspnea, shortness of breath at rest and shortness of breath with exertion; Denies cough, excessive phlegm production, hemoptysis, productive cough or wheezing Gastrointestinal Gastrointestinal: Denies abdominal pain, constipation, diarrhea, nausea or vomiting Genitourinary Genitourinary: Denies burning urination or dysuria Musculoskeletal Musculoskeletal: Denies arthralgias Neurologic Neurologic: Denies confusion, dizziness, focal weakness, headache(s) or seizures Psychiatric Psychiatric: Denies anxiety Hematologic/Lymphatic Hematologic/Lymphatic: Denies anemia Vital Signs Vital Signs Vital Signs: 04/18/23 11:12 04/18/23 11:12 04/18/23 13:06 Temperature 97.2 F L 97.2 F L Temperature Source Temporal Temporal Pulse Rate 72 104 H Respiratory Rate 16 16 Respiratory Pattern Normal Normal Blood Pressure 127/77 H 96/46 L Blood Pressure Mean 93 62 Blood Pressure Source Monitor Monitor Blood Pressure Position Semi-Fowlers Semi-Fowlers Blood Pressure Location Left Arm Left Arm Baseline BP 127/77 Pulse Ox 92 100 Oxygen Delivery Method Room Air Nasal Cannula Oxygen Flow Rate (L/min) 4 04/18/23 13:15 04/18/23 13:30 04/18/23 13:45 Temperature Temperature Source Pulse Rate 114 H 97 81 Respiratory Rate 18 18 19 H Respiratory Pattern Blood Pressure 94/65 112/60 93/57 L Blood Pressure Mean 74 77 69 Blood Pressure Source Monitor Monitor Monitor Blood Pressure Position Semi-Fowlers Semi-Fowlers Semi-Fowlers Blood Pressure Location Right Arm Right Arm Right Arm Baseline BP 127/77 127/77 127/77 Pulse Ox 94 92 95 Oxygen Delivery Method Simple Mask Simple Mask Simple Mask Oxygen Flow Rate (L/min) 4 4 4 04/18/23 14:00 04/18/23 14:15 04/18/23 14:30 Temperature Temperature Source Pulse Rate 79 78 78 Respiratory Rate 18 16 19 H Respiratory Pattern Blood Pressure 104/54 L 94/43 L 113/56 L Blood Pressure Mean 70 60 75 Blood Pressure Source Monitor Monitor Monitor Blood Pressure Position Semi-Fowlers Semi-Fowlers Semi-Fowlers Blood Pressure Location Right Arm Right Arm Right Arm Baseline BP 127/77 127/77 127/77 Pulse Ox 92 95 92 Oxygen Delivery Method Simple Mask Simple Mask Simple Mask Oxygen Flow Rate (L/min) 2 4 4 04/18/23 14:45 04/18/23 14:49 04/18/23 13:40 Temperature Temperature Source Pulse Rate 78 92 Respiratory Rate 19 H 19 H 18 Respiratory Pattern Blood Pressure 113/64 Blood Pressure Mean 80 Blood Pressure Source Monitor Blood Pressure Position Semi-Fowlers Blood Pressure Location Right Arm Baseline BP 127/77 127/77 Pulse Ox 83 95 Oxygen Delivery Method Simple Mask Simple Mask Oxygen Flow Rate (L/min) 2 4 Weight Weight: 277 lb 12.519 oz Body Mass Index (BMI) 46.2 Physical Exam Const alert, oriented x3 and no apparent distress General Appearance: cooperative HEENT normocephalic, head/scalp atraumatic, hearing grossly normal bilaterally and moist oral mucous membranes Mouth: oral and palatal mucosa normal Eyes PERRL and EOMs intact bilaterally Neck no lymphadenopathy and supple Resp Resp Narrative: moderately diminished breath sounds bibasally, no wheezes or crackles. on 4L of oxygen by mask. Cardio regular rate, regular rhythm, S1 normal heart sound, S2 normal heart sound and no murmurs GI normal to inspection, nondistended, normoactive bowel sounds, soft to palpation and non-tender Extremity normal to inspection, full ROM and no clubbing, cyanosis or edema Neuro oriented x3, CN's II-XII intact bilaterally, moves all extremities and no focal motor deficits Sensorium / Orientation: awake and alert Motor Exam: strength 5/5 throughout Psych affect normal Results Lab / Micro Data Result Diagrams: 04/14/23 15:32 Labs: Laboratory Results - last 24 hr 04/18/23 11:06: POC Glucose 141 H Radiology Impression Chest X-Ray 04/18/23 14:20 IMPRESSION: Hyperinflation. Findings suggestive of scarring at the lung bases. 2.9 cm x 3.9 cm faint nodule in the right upper lobe. Correlation with a CT scan is recommended for further evaluation. Electronically Signed: Vance Cast MD at 14:40 EDT , Assessment & Plan Assessment/Plan (1) Hypoxia: PLAN: Plan #Hypoxia in setting of post EBUS and probable sleep apnea * admit to [facility] 3 * Patient was admitted for EBUS for staging of his non-small cell lung cancer. He could not be weaned off of oxygen in the recovery room afterwards. * Admit to [facility]. Breathing treatments bronchodilators. Titrate oxygen to maintain saturation above 90%. * his hypoxia is likely due to sleep apnea * may need oxygen at discharge * #Small cell lung cancer * Diagnosed via [facility] with transbronchial biopsies in January 2023. Has had MRI of the brain which showed no evidence of spread. He also had a PET scan which showed no increased uptake * Had EBUS to help with staging. * Follow-up with pulmonology on outpatient basis as well as oncology. * #Obesity: BMI is 46.2. Complicates acute care, expected recovery and management. Likely contributing to probable obstructive sleep apnea #COPD: Not on oxygen at home. Titrate oxygen to maintain saturation above 90%. DVT prophylaxis: Lovenox Charges/Coding Visit Charges Inpatient E&M: 50825 Init Hosp L2
[2023-04-18] MEDS: Atorvastatin Calcium 10 MG Tablet PO (23:08)
[2023-04-19] VITALS (10 sets, daily range): BP systolic 126–142; BP diastolic 56–75; PULSE 77–99; RESP 16–22; TEMP 36.3–36.6; O2SAT 90–94; BMI 47.7
[2023-04-19] MEDS: oxyCODONE 5 MG Tablet PO (00:16)
[2023-04-19 05:29] LABS: Absolute Lymphocyte Count 1.13 X10^3/uL (0.83-4.51); Absolute Neutrophil Count 10.6 X10^3/uL (2.0-7.7); Basophil# 0.03 X10^3/uL; Basophil% 0.2 % (0-1); Lymphocyte # 1.13 X10^3/ul (0.83-4.51); Lymphocyte % 8.9 % (19-41); Mean Corp Hgb Conc 33.3 g/dL (32-36); Mean Corpuscular Hgb 32.6 pg (27.0-32.0); Mean Corpuscular Volume 97.9 fL (80-94); Monocyte# 0.88 X10^3/uL; Monocyte% 6.9 % (0-10); NRBC Flagged by Analyzer 0 % (0-5); Neutrophil # 10.64 X10^3/uL (2.7-7.7); Neutrophil % 83.5 % (47-70); Platelet Count 236 K/mm3 (150-450); RBC Distribution Width CV 13.2 % (11.6-14.6); RBC Distribution Width SD 47.5 fl (35.1-43.9); Red Blood Count 4.29 M/mm3 (4.6-6.2); White Blood Count 12.7 K/mm3 (4.4-11.0)
--- NOTE | 2023-04-19 06:00 | PCM.PN.INT ---
Assessment & Plan Assessment/Plan (1) Hypoxia: PLAN: Plan RECOMMENDATIONS: 1. Wean supplemental oxygen to maintain saturations at or above 90%. 2. Perform ambulatory pulse oximetry and set up with home supplemental O2, if needed. 3. Continue bronchodilators. 4. Encourage incentive spirometer use. 5. Outpatient follow-up with primary cosmetic counselor, Dr. Doshi and Dr. Jones of oncology. IMPRESSIONS: 1. Hypoxemia The patient was ultimately admitted for overnight observation following his EBUS procedure yesterday afternoon for staging of his non-small cell carcinoma. I do suspect that the procedure itself may have exacerbated his underlying obstructive lung disease. Given that the patient did have a supplemental oxygen requirement in the PACU, he was admitted. The patient is doing well this morning from a respiratory perspective on 2 L/min. He has been maintained on scheduled bronchodilators. The patient is interested in going home. Postprocedure chest x-ray only demonstrated chronic pulmonary findings. I would recommend that we ambulate the patient to determine his supplemental oxygen requirement. Following this, the patient can be set up for supplemental O2, if needed, with plans to return home. We will contact the patient in the upcoming week once his biopsy results are available for review. 2. Squamous cell carcinoma of the right lung The patient was recently diagnosed with squamous cell carcinoma of the right upper lobe, following transbronchial needle biopsy by Dr. Doshi.? The patient has since completed an MRI brain and PET scan.? No hypermetabolic lesions were noted within the mediastinum or hilar regions.? However, given the size of the patient's primary lung tumor, staging EBUS was completed on April 18. Biopsy results are pending. This note was generated with [employer] dictation software. It may contain incorrect words, spelling, and punctuation that were not noted in checking the note before signing. Subjective Subjective The patient is a 77-year-old male with a known history of squamous cell carcinoma who underwent staging EBUS yesterday. Postprocedure, the patient had a supplemental oxygen requirement of 3-4 L/min. He was subsequently admitted to the hospital for overnight observation and to be set up for home supplemental O2. The patient's postprocedure chest x-ray only demonstrated chronic pulmonary findings without anything acute. This morning, the patient is resting comfortably in bed. He had an uneventful night. He is currently maintaining appropriate oxygen saturations on 2 L/min via nasal cannula. The patient reported to me that even if supplemental oxygen is indicated, that he does not have plans to utilize it as prescribed. Objective Data Objective Data The patient's most recent lab work, culture data and imaging studies have all been personally reviewed. Vital Signs: Vital Signs Temp Pulse Resp BP Pulse Ox O2 Del Method O2 Flow Rate 97.5 F L 96 16 126/63 H 94 Nasal Cannula 4 04/19/23 02:13 04/19/23 02:13 04/19/23 02:13 04/19/23 02:13 04/19/23 02:13 04/19/23 02:13 04/19/23 02:13 Oxygen Flow Rate (L/min) 4 Oxygen Delivery Method Nasal Cannula Weight: 277 lb 12.519 oz Body Mass Index (BMI) 47.7 Intake & Output: Intake and Output for Last 24 Hours 04/17/23 04/18/23 04/19/23 23:59 23:59 23:59 Intake Total 171.25 / 771.25 600 / 600 Balance 171.25 / 771.25 600 / 600 Lab / Micro Data Attestation: I reviewed the patient's lab results. Result Diagrams: 04/19/23 05:06 04/19/23 05:06 Labs: Laboratory Results - last 24 hr 04/18/23 11:06: POC Glucose 141 H 04/19/23 05:06: WBC 12.7 H, RBC 4.29 L, Hgb 14.0, Hct 42.0, MCV 97.9 H, MCH 32.6 H, MCHC 33.3, RDW Std Deviation 47.5 H, RDW Coeff of Yan 13.2, Plt Count 236, MPV 9.0, Immature Gran % (Auto) 0.500, Neut % (Auto) 83.5 H, Lymph % (Auto) 8.9 L, [place] % (Auto) 6.9, Eos % (Auto) 0.0, Baso % (Auto) 0.2, Absolute Neuts (auto) 10.6 H, Absolute Lymphs (auto) 1.13, Nucleated RBC % 0 Radiography Diagnostic Testing: Radiology Impression Chest X-Ray 04/18/23 14:20 IMPRESSION: Hyperinflation. Findings suggestive of scarring at the lung bases. 2.9 cm x 3.9 cm faint nodule in the right upper lobe. Correlation with a CT scan is recommended for further evaluation. Electronically Signed: Vance Cast MD at 14:40 EDT , Physical Exam Const alert, oriented x3 and no apparent distress General Appearance: cooperative HEENT normocephalic and head/scalp atraumatic Eyes PERRL and EOMs intact bilaterally Neck supple General: trachea midline Chest inspection of chest normal Resp normal respiratory effort Auscultation: diminished lung sounds Cardio regular rate and regular rhythm GI normal to inspection, nondistended, normoactive bowel sounds Extremity no clubbing, cyanosis or edema Skin no rashes or lesions noted Neuro oriented x3, CN's II-XII intact bilaterally and moves all extremities Psych cooperative and affect normal Charges/Coding Visit Charges Inpatient E&M: 41732 Subs Hosp L2
[2023-04-19 06:42] LABS: Anion Gap 7 (5-15); BUN 46 mg/dL (7-18); BUN/Creat Ratio 27.4 RATIO (10-20); Calcium,Total 8.5 mg/dL (8.5-10.1); Chloride 105 mmol/L (98-107); Creatinine, Serum 1.68 mg/dL (0.70-1.30); EST Glomerular Filtration Rate 42 mL/min (>60); Est Glom Filt Rate - Afr Amer 51 mL/min (>60); Estimated Creatinine Clearance 30.34 ml/min; Glucose 191 mg/dL (74-106); Potassium 4.4 mmol/L (3.5-5.1); Sodium Level 137 mmol/L (136-145)
[2023-04-19] MEDS: Ipratropium/Albuterol Sulfate 3 ML AMPUL.NEB INHALATION ×2 (07:14→11:00)
--- NOTE | 2023-04-19 07:17 | PN.HOSP_ITS ---
Reason for Visit Reason for Visit: Diagnoses Malignant neoplasm of unspecified part of right bronchus or lung (04/18/23) Objective Data Objective Data Vital Signs: Vital Signs Temp Pulse Resp BP Pulse Ox O2 Del Method O2 Flow Rate 97.4 F L 86 16 142/75 H 94 Nasal Cannula 4 04/19/23 06:18 04/19/23 06:18 04/19/23 06:18 04/19/23 06:18 04/19/23 06:18 04/19/23 06:18 04/19/23 06:18 Oxygen Flow Rate (L/min) 4 Oxygen Delivery Method Nasal Cannula Weight: 277 lb 12.519 oz Body Mass Index (BMI) 47.7 Intake & Output: Intake and Output for Last 24 Hours 04/17/23 04/18/23 04/19/23 23:59 23:59 23:59 Intake Total 171.25 / 771.25 800 / 800 Balance 171.25 / 771.25 800 / 800 Lab / Micro Data Result Diagrams: 04/19/23 05:06 04/19/23 05:06 Labs: Laboratory Results - last 24 hr 04/18/23 11:06: POC Glucose 141 H 04/19/23 05:06: WBC 12.7 H, RBC 4.29 L, Hgb 14.0, Hct 42.0, MCV 97.9 H, MCH 32.6 H, MCHC 33.3, RDW Std Deviation 47.5 H, RDW Coeff of Yan 13.2, Plt Count 236, MPV 9.0, Immature Gran % (Auto) 0.500, Neut % (Auto) 83.5 H, Lymph % (Auto) 8.9 L, [place] % (Auto) 6.9, Eos % (Auto) 0.0, Baso % (Auto) 0.2, Absolute Neuts (auto) 10.6 H, Absolute Lymphs (auto) 1.13, Nucleated RBC % 0 04/19/23 05:06: Sodium 137, Potassium 4.4, Chloride 105, Carbon Dioxide 25.0, Anion Gap 7, BUN 46 H, Creatinine 1.68 H, Estim Creat Clear Calc 30.34, Est GFR (MDRD) Af Amer 51 L, Est GFR (MDRD) Non-Af 42 L, BUN/Creatinine Ratio 27.4 H, Glucose 191 H, Calcium 8.5 Radiography Diagnostic Testing: Radiology Impression Chest X-Ray 04/18/23 14:20 IMPRESSION: Hyperinflation. Findings suggestive of scarring at the lung bases. 2.9 cm x 3.9 cm faint nodule in the right upper lobe. Correlation with a CT scan is recommended for further evaluation. Electronically Signed: Vance Cast MD at 14:40 EDT , Assessment & Plan Assessment/Plan (1) Hypoxia: PLAN: Plan 69-year-old gentleman was admitted for hypoxia after he he had out patient EBUS. CT chest without contrast in January 03 showed spiculated RUL pulmonary nodule 2.5 x 2.9 cm with enlarged superior and inferior right paratracheal lymph node.. Known history of COPD. Transbronchial biopsy by Dr. Doshi showed NSCLC. #Hypoxia in setting of post EBUS and probable sleep apnea * admit to [facility] 3 * Patient was admitted for EBUS for staging of his non-small cell lung cancer. He could not be weaned off of oxygen in the recovery room afterwards. * Admit to [facility] 3. Breathing treatments bronchodilators. Titrate oxygen to maintain saturation above 90%. * his hypoxia is likely due to sleep apnea. During previous bronchoscopy by Dr. Giang patient was noted to have apneic episodes throughout her entire br onchoscopy. Posterior oropharynx was narrowed. * may need oxygen at discharge * #Non-small cell lung cancer * Diagnosed via [facility] with transbronchial biopsies in January 2023. Has had MRI of the brain which showed no evidence of spread. He also had a PET scan which showed no increased uptake * Had EBUS to help with staging. PET CT chest in January 2023 showed increased uptake in posterior segment of RUL and superior segment of the RLL. * Follow-up with pulmonology on outpatient basis as well as oncology. * #Obesity: BMI is 46.2. Complicates acute care, expected recovery and management. Likely contributing to probable obstructive sleep apnea #COPD: Patient has [id number] of smoking quit in 2012. FEV1 63% predicted. Patient does not uses his baseline inhalers. Not on oxygen at home. Titrate oxygen to maintain saturation above 90%. DVT prophylaxis: Lovenox
[2023-04-19] MEDS: Losartan Potassium 50 MG Tablet PO (09:52)
[2023-04-19] MEDS: hydroCHLOROthiazide 25 MG Tablet PO (09:52)
--- NOTE | 2023-04-19 10:04 | DCINST_ITS ---
Discharge Instructions Diet Discharge Diet: Low fat / Low cholesterol, 1800 Calorie Control Diet and 2000 mg Sodium Diet Activity Discharge Activity: Return to Normal Activity Weight Bearing Status: Weight bearing as tolerated Dressing / Incision Call your doctor if you observe: Fever of 101 or Higher, Coldness, Increased Pain, Numbness or Tingling, Change in Color, Inability to urinate, Inability to have a bowel movement, Shortness of breath, Dizziness, Fainting spells, Swelling in the ankles, Chest pain, Prolonged hiccupping, Increased palpitations (irregular heartbeat) and Calf discomfort Follow Up Care When: IN 2 WEEKS Test Results: Test results from this visit will be discussed in further detail at your follow- up appointment, if applicable. Discharge Plan Admission Admit Date/Time: 04/18/23 15:57 Attending Provider: Darryn Liao Primary Care Provider: Lyle Ruiz Consulting Providers: James Lee Discharge Orders/Prescriptions Prescriptions: Continued ibuprofen 800 mg tablet 800 mg PO Q12H clopidogrel [Plavix] 75 mg Tablet 75 mg PO DAILY simvastatin 20 mg Tablet 20 mg PO QHS valsartan-hydrochlorothiazide 160-25 mg Tablet 1 tab PO DAILY Referrals / Follow Up: Lyle Ruiz MD [Primary Care Provider] - Sampson Doshi MD [Med Staff - Active Staff] - Within 2 Weeks Disposition Disposition (needs filled in before D/C Order can be placed): Home, Self Care
--- NOTE | 2023-04-19 10:11 | NURSING ---
1005 O2 home qualification documentation, see intervention- pox stable at 90-91% without O2 Lolis Estrada RN
--- NOTE | 2023-04-19 10:29 | PCM.DC.SUM ---
Providers Date of Admission: 04/18/23 Date of Discharge: 04/19/23 Primary Care Physician: Dr. Lyle Ruiz MD Diagnosis Discharge Diagnosis (1) Hypoxia: Status: Acute Code(s): R09.02 - Hypoxemia Plan 69-year-old gentleman was admitted for hypoxia after he he had out patient EBUS.? CT chest without contrast in January 03 showed spiculated RUL pulmonary nodule 2.5 x 2.9 cm with enlarged superior and inferior right paratracheal lymph node..? Known history of COPD.? Transbronchial biopsy by Dr. Doshi showed NSCLC. #Hypoxia in setting of post EBUS and probable underlying obstructive sleep apnea Patient was admitted to [facility] floor. Patient was admitted for EBUS for staging of his non-small cell lung cancer.? He could not be weaned off of oxygen in the recovery room afterwards. Admit to [facility] 3.? Breathing treatments bronchodilators.? Titrate oxygen to maintain saturation above 90%. During previous bronchoscopy by Dr. Giang patient was noted to have apneic episodes throughout her entire bronchoscopy.? Posterior oropharynx was narrowed. Earlier patient said he does not want oxygen even if it is needed. He quoted he came to hospital without oxygen will go without oxygen. Home qualification oxygen was done patient 91% at rest 90% standing and 90% walking on room air/ambient air. For now patient does not need oxygen. #Non-small cell lung cancer Diagnosed via [facility] with transbronchial biopsies in January 2023.? Has had MRI of the brain which showed no evidence of spread.? He also had a PET scan which showed no increased uptake Had EBUS to help with staging.? PET CT chest in January 2023 showed increased uptake in posterior segment of RUL and superior segment of the RLL. Follow-up with pulmonology on outpatient basis as well as oncology. #Obesity: BMI is 46.2.? Complicates acute care, expected recovery and management.? Likely contributing to probable obstructive sleep apnea #COPD: Patient has [id number] of smoking quit in 2012.? FEV1 63% predicted.? Patient does not uses his baseline inhalers. Not on oxygen at home.? Titrate oxygen to maintain saturation above 90%. DVT prophylaxis: Lovenox Patient is discharged home with follow-up with Dr. Doshi. Discharge medication reconciliation done. Discharge follow-up instructions completed. Discharge process discussed with the patient and all questions were answered to patient's satisfaction. Total time spent, exact 35 minutes on discharge meds reconciliation, examination, coordination of care with nurses and ancillary staff, review of imaging and blood test and discussion with the patient on follow-up instructions. Medications at Discharge Home Medications clopidogrel 75 mg tablet (Plavix) 75 mg PO DAILY 02/17/23 simvastatin 20 mg tablet 20 mg PO QHS 02/17/23 valsartan 160 mg-hydrochlorothiazide 25 mg tablet 1 tab PO DAILY 02/17/23 ibuprofen 800 mg tablet 800 mg PO Q12H 04/02/23 Physical Exam Narrative Seen and examined. Patient upset that he is on oxygen. He stated he did not want oxygen to go home. Patient has history of obstructive sleep apnea nonadherent to CPAP. He had apneic episode during previous bronchoscopy by Dr. Elvis dee. Patient is scheduled for polysomnograph but he states does not want any further work-up or treatment. Physical exam General: Alert, Oriented x3, Cooperative, morbid obesity BMI 47.7 kg/m?. HEENT: Atraumatic, PERRLA, EOMI, Normocephalic Oral: Deep pharyngeal and soft palate structures could not be visualized. No Gingival or Mucosal Lesions/ Ulcerations Neck: Supple, No JVD, Negative Carotid Bruits Lungs: Air entry diminished in bilateral lung bases. Bilateral expiratory rhonchi, chronic. Cardiovascular: Regular rate, Regular Rhythm, Normal S1, Normal S2, No murmurs Abdomen: Bowel Sounds Present, Soft, Non Tender, Non-Distended : No renal angle tenderness. No suprapubic tenderness. Extremities: Mild ankle pitting edema, Capillary Refill Less than 3 Seconds Skin: No rashes, No breakdown Musculoskeletal: No Tenderness to Palpation of Joints or Extremities Neurological: Cranial nerves II-XII grossly intact, DTR 2+/4 and Symmetrical, Neuro grossly intact Psych/Mental Status: Flat affect Weight / BMI Weight Weight: 277 lb 12.519 oz Body Mass Index (BMI) 47.7 ABG / Lab / Microbiology Data Result Diagrams: 04/19/23 05:06 04/19/23 05:06 Laboratory: Laboratory Results - last 24 hr 04/18/23 11:06: POC Glucose 141 H 04/19/23 05:06: WBC 12.7 H, RBC 4.29 L, Hgb 14.0, Hct 42.0, MCV 97.9 H, MCH 32.6 H, MCHC 33.3, RDW Std Deviation 47.5 H, RDW Coeff of Yan 13.2, Plt Count 236, MPV 9.0, Immature Gran % (Auto) 0.500, Neut % (Auto) 83.5 H, Lymph % (Auto) 8.9 L, [place] % (Auto) 6.9, Eos % (Auto) 0.0, Baso % (Auto) 0.2, Absolute Neuts (auto) 10.6 H, Absolute Lymphs (auto) 1.13, Nucleated RBC % 0 04/19/23 05:06: Sodium 137, Potassium 4.4, Chloride 105, Carbon Dioxide 25.0, Anion Gap 7, BUN 46 H, Creatinine 1.68 H, Estim Creat Clear Calc 30.34, Est GFR (MDRD) Af Amer 51 L, Est GFR (MDRD) Non-Af 42 L, BUN/Creatinine Ratio 27.4 H, Glucose 191 H, Calcium 8.5 Radiography Diagnostic Testing: Radiology Impression Chest X-Ray 04/18/23 14:20 IMPRESSION: Hyperinflation. Findings suggestive of scarring at the lung bases. 2.9 cm x 3.9 cm faint nodule in the right upper lobe. Correlation with a CT scan is recommended for further evaluation. Electronically Signed: Vance Cast MD at 14:40 EDT , D/C Instructions Discharge Diet: Low fat / Low cholesterol, 1800 Calorie Control Diet and 2000 mg Sodium Diet Weight Bearing Status: Weight bearing as tolerated Call your doctor if you observe: Fever of 101 or Higher, Coldness, Increased Pain, Numbness or Tingling, Change in Color, Inability to urinate, Inability to have a bowel movement, Shortness of breath, Dizziness, Fainting spells, Swelling in the ankles, Chest pain, Prolonged hiccupping, Increased palpitations (irregular heartbeat) and Calf discomfort When: IN 2 WEEKS Meaningful Use Info Meaningful Use Diagnoses (Choose all that apply): None applicable Discharge Plan Admission Admit Date/Time: 04/18/23 15:57 Attending Provider: Darryn Liao Primary Care Provider: Lyle Ruiz Consulting Providers: James Lee Discharge Orders/Prescriptions Prescriptions: Continued ibuprofen 800 mg tablet 800 mg PO Q12H clopidogrel [Plavix] 75 mg Tablet 75 mg PO DAILY simvastatin 20 mg Tablet 20 mg PO QHS valsartan-hydrochlorothiazide 160-25 mg Tablet 1 tab PO DAILY Referrals / Follow Up: Lyle Ruiz MD [Primary Care Provider] - Sampson Doshi MD [Med Staff - Active Staff] - Within 2 Weeks Disposition Disposition (needs filled in before D/C Order can be placed): Home, Self Care Charges/Coding Visit Charges Inpatient E&M: 54199 Disch Hosp >30min
--- NOTE | 2023-04-19 10:46 | CASEMGMT ---
FELICITY CM NOTE: Home O2 amb testing has been completed. Pt does not qualify for Home O2. David AMIN RN CM
== END 2023-04-19 14:10 | disposition home or self-care (01) ==
LOC: EN 16:35 → MS3 16:35
PROVIDERS: Student in an Organized Health Care Education/Training Program; Admitting Provider Internal Medicine Critical Care Medicine; PCP Family Medicine; Referring Provider Internal Medicine Critical Care Medicine; Visit Provider Internal Medicine
PROC: BB4BZZZ Ultrasonography of Pleura (ICD-10-PCS; CPT 31653; principal; 2023-04-18 11:30)
DX: C34.11 Malignant neoplasm of upper lobe, right bronchus or lung (principal); J44.9 Chronic obstructive pulmonary disease, unspecified; E66.01 Morbid (severe) obesity due to excess calories; Z68.42 Body mass index [BMI] 45.0-49.9, adult; E11.9 Type 2 diabetes mellitus without complications; I10 Essential (primary) hypertension; Z79.02 Long term (current) use of antithrombotics/antiplatelets; R09.02 Hypoxemia; Z87.891 Personal history of nicotine dependence; R59.0 Localized enlarged lymph nodes; Z79.899 Other long term (current) drug therapy; G47.33 Obstructive sleep apnea (adult) (pediatric); R06.02 Shortness of breath
CPT/HCPCS: 31653; 36415; 71045; 80048; 82962; 85025; 85049; 85610; 85730; 88161; 88172; 88305; 88313; 94640; 94668; 94762; 97162; 97166; 99221; J7120; G0378; G0379

== ENCOUNTER 2023-10-13 19:45 | Emergency (ER) | payer MEDICARE, SELFPAY ==
[2023-10-13 19:46] VITALS: BP 91/58; PULSE 87; RESP 14; TEMP 36.8; O2SAT 93
--- NOTE | 2023-10-13 21:24 | CT_ITS ---
STUDY: CT BRAIN WITHOUT CONTRAST REASON FOR EXAM: Male, 78 years old. Trauma RADIATION DOSAGE (If Supplied By Facility): CTDIvol = ( 44.99 ) mGy, DLP = ( 779.24 ) mGycm TECHNIQUE: Transaxial CT imaging of the brain was performed without administration of intravenous contrast material. Individualized dose optimization techniques were used for this CT. COMPARISON: No relevant priors. FINDINGS: Normal soft tissue structures. Normal calvarium. There is mild cerebral atrophy with widening of the extra-axial spaces and ventricular dilatation. There are areas of decreased attenuation within the white matter tracts of the supratentorial brain, consistent with microvascular disease changes. Normal basal ganglia and thalami. Normal brainstem. Normal cerebellum. There is no intracranial hemorrhage. There are no findings of an acute ischemic infarction. Normal visualized paranasal sinuses. CT/Brain/Head without Contrast IMPRESSION: Chronic changes as described with no acute intracranial hemorrhage or space-occupying lesion. Electronically Signed: Delma Cox MD at 22:07 EST ,
--- NOTE | 2023-10-13 21:26 | EDS_ITS ---
HPI History of Present Illness Chief Complaint: Laceration Narrative Narrative: 78-year-old male past medical history of previous stroke on Plavix presents with injury to his head after fall. He states that a few hours ago he was trying to get his walker out of his hatchback and the hatchback kicked back on him. He fell backwards and hit his head on the railing to the ramp to his house. He denies loss of consciousness, no headache. He is unsure of his last tetanus immunization. He was able to ambulate afterwards but states there is a laceration on his occiput that he could not get control over the bleeding. He denies any neck pain. No other injury. Tetanus Immunization: Unknown [facility] Medical History Alcohol use Back pain COPD (chronic obstructive pulmonary disease) Diabetes Former smoker History of edema History of pain when walking History of rectal fissure History of stress test Hypertension Leg cramps Loss of hearing Obesity, Class III, BMI 40-49.9 (morbid obesity) MADELINE and COPD overlap syndrome Shortness of breath on exertion Squamous cell carcinoma of right lung TIA (transient ischemic attack) Wears dentures Wears glasses Home Medications clopidogrel 75 mg tablet (Plavix) 75 mg PO DAILY 02/17/23 [History Last Taken 04/12/23] simvastatin 20 mg tablet 20 mg PO QHS 02/17/23 [History Last Taken Unknown] valsartan 160 mg-hydrochlorothiazide 25 mg tablet 1 tab PO DAILY 02/17/23 [History Last Taken 04/18/23] ibuprofen 800 mg tablet 800 mg PO Q12H 04/02/23 [History Last Taken 04/18/23] Allergy/AdvReac Type Severity Reaction Status Date / Time No Known Allergies Allergy Verified 04/18/23 11:09 Social History Smoking Status: Former smoker Tobacco: How many years used: 55 ROS ROS ED ROS Narrative Constitutional: No fever, no chills. HEENT: No sore throat. No neck pain. No loss of vision. No rhinorrhea. Laceration on occiput of head, more towards the left. Cardiovascular: No chest pain. No palpitations. No pedal edema. Respiratory: No cough, no shortness of breath. Abdominal: No abdominal pain. No nausea. No vomiting. Genitourinary: No dysuria. No hematuria. Musculoskeletal: No myalgias. No arthralgias. Neurologic: No headaches. No dizziness. No lightheadedness. Skin: No rash. No change in color. Psychiatric: No depression. No anxiety. EXAM Physical Exam Narrative Exam Narrative: Afebrile. Vital signs noted. GCS 15. ABCs intact. HEENT: Normocephalic. 4 cm laceration running obliquely on left occiput. No apparent galeal involvement. No active bleeding. PERRL, EOMI. Neck soft and supple. No point tenderness or step off. Full range of motion of neck without pain. Cardiovascular: Regular rate and rhythm. No murmurs, rubs, or gallops appreciated. Respiratory: No tachypnea. Lungs clear to auscultation bilaterally. Gastrointestinal: Abdomen soft, nontender, with normoactive bowel sounds. No rebound or guarding. Neurological: Awake. Alert. Nonfocal, nonlateralizing. Skin: No rash. Normal color. No pallor. Musculoskeletal: No pedal edema. Full range of motion extremities. Const Vital Signs: 10/13/23 19:46 10/13/23 22:00 10/13/23 22:57 Temperature 98.2 F Temperature Source Temporal Pulse Rate 87 80 85 Respiratory Rate 14 16 Blood Pressure 91/58 L 129/65 H 144/64 H Blood Pressure Mean 69 86 90 Pulse Ox 93 90 92 Oxygen Delivery Method Room Air Room Air PROC Procedures Lacerations Scalp laceration: Length: 1.57 in Depth: Skin Shape: Linear Prep: Sterile Conditions Laceration repair: Irrigated and Lidocaine Number of Sutures/Elisa: 5 Comment: Wall used. No apparent galeal involvement. Patient tolerated procedure well. MDM MDM MDM Narrative Medical decision making narrative: As the patient is on a blood thinner in the form of clipper to gel, I do feel CT imaging of the brain is indicated to help rule out skull fracture or intracranial hemorrhage or subdural hematoma. Patient has a normal neurological examination. I do not feel CT imaging of the neck is indicated as he has full range of motion without pain. His wound will be cleansed. He will be given a tetanus immunization and lidocaine will be used to inject the area for closure with elisa. I reviewed the CT report of the brain and shows no active hemorrhage or acute skull fracture. His wound was cleansed and closed with surgical elisa. See procedure note for details. I feel he can be discharged to follow-up with his primary care provider. He was given a staple remover and will have the elisa removed in 10 days or return to the emergency department for staple removal. Disposition is discharged home in stable condition. Radiography Diagnostic Testing: Clinical Impression(s) from Imaging Studies Brain CT 10/13/23 21:24 IMPRESSION: Chronic changes as described with no acute intracranial hemorrhage or space-occupying lesion. Electronically Signed: Delma Cox MD at 22:07 EST , Discharge Plan Triage Chief Complaint: Laceration ED Provider: Patricio Rainey Dx/Rx/DC Orders Clinical Impression: Fall, Laceration of scalp Instructions: ED Mechanical Fall, ED Laceration Scalp Stitches or Elisa Prescriptions: No Action ibuprofen 800 mg tablet 800 mg PO Q12H clopidogrel [Plavix] 75 mg Tablet 75 mg PO DAILY simvastatin 20 mg Tablet 20 mg PO QHS valsartan-hydrochlorothiazide 160-25 mg Tablet 1 tab PO DAILY Primary Care Provider: Lyle Ruiz Referrals: Lyle Ruiz MD [Primary Care Provider] - 10 Day for suture removal Activity Restrictions/Additional Instructions: Have the elisa removed in 10 days by your primary care physician. You may return to the emergency department but you will be charged for an ED visit. Return with drainage of pus from the wound, fever, new or worsening symptoms. Disposition Disposition: Home, Self Care Discharge Date/Time: 10/13/23 23:04
[2023-10-13 22:00] VITALS: BP 129/65; PULSE 80; RESP 16; O2SAT 90
[2023-10-13] MEDS: Diphth,Pertuss(Acell),Tet Vac 0.5 ML Vial IM (22:01)
[2023-10-13] MEDS: Lidocaine 1% (20 ml mdv) 20 ML Vial INFILT (22:01)
[2023-10-13 22:57] VITALS: BP 144/64; PULSE 85; O2SAT 92
== END 2023-10-13 23:04 | disposition home or self-care (01) ==
PROVIDERS: Emergency Provider Emergency Medicine; PCP Family Medicine; Visit Provider Emergency Medicine
DX: S01.01XA Laceration without foreign body of scalp, initial encounter (principal); J44.9 Chronic obstructive pulmonary disease, unspecified; E11.9 Type 2 diabetes mellitus without complications; G47.33 Obstructive sleep apnea (adult) (pediatric); Z87.891 Personal history of nicotine dependence; Z23 Encounter for immunization; Z86.73 Personal history of transient ischemic attack (TIA), and cerebral infarction without residual deficits; Z79.01 Long term (current) use of anticoagulants; W19.XXXA Unspecified fall, initial encounter
CPT/HCPCS: 12001; 70450; 90471; 90715; 99283

== ENCOUNTER 2024-06-24 15:25 | Emergency (ER) | payer MEDICARE, SELFPAY ==
[2024-06-24 15:25] VITALS: BP 145/74; PULSE 66; PULSE 76; RESP 16; RESP 20; TEMP 36.6; O2SAT 87; O2SAT 92; BMI 40.9
[2024-06-24 15:39] VITALS: O2SAT 93
[2024-06-24 16:11] VITALS: O2SAT 91
--- NOTE | 2024-06-24 16:11 | EKG12_ITS ---
Test Reason : SOB Blood Pressure : / mmHG Vent. Rate : 064 BPM Atrial Rate : 064 BPM P-R Int : 222 ms QRS Dur : 090 ms QT Int : 394 ms P-R-T Axes : 051 -53 056 degrees QTc Int : 406 ms Sinus rhythm with sinus arrhythmia with 1st degree A-V block Left axis deviation Septal infarct , age undetermined Abnormal ECG Confirmed by PHIL GARG, MOHAN ([id number]), make up editor ROSANA SWARTZ ([id number]) on 06/29/2024 1:54:19 PM Referred By: DANYA/MAGED Confirmed By:SYLVIA VILLARREAL MD
--- NOTE | 2024-06-24 16:14 | ED.VIS.DYS ---
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 No GI symptoms or diarrhea. No hemoptysis. No chest discomfort with exertion. 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 Loss of hearing Wears glasses Wears dentures Alcohol use Diabetes Back pain TIA (transient ischemic attack) Former smoker COPD (chronic obstructive pulmonary disease) Shortness of breath on exertion Leg cramps History of pain when walking History of edema History of stress test Hypertension History of rectal fissure Home Medications ?Medication ?Instructions ?Recorded ?Last Taken ?Type clopidogrel 75 mg tablet (Plavix) 75 mg PO DAILY 02/17/23 04/12/23 History simvastatin 20 mg tablet 20 mg PO QHS 02/17/23 Unknown History ibuprofen 800 mg tablet 800 mg PO Q12H 04/02/23 04/18/23 History amlodipine 5 mg-valsartan 160 1 tab PO 11/04/23 Unknown History mg-hydrochlorothiazide 25 mg tablet dicloxacillin 500 mg capsule mg PO 11/04/23 Unknown History albuterol sulfate 90 mcg/actuation 1 - 2 puff inhalation Q4H PRN PRN 06/24/24 Unknown Rx aerosol inhaler (Ventolin HFA) Wheezing ##1 prednisone 20 mg tablet 40 mg (2 x 20 mg) PO DAILY #10 06/24/24 Unknown Rx TABLETS Allergy/AdvReac Type Severity Reaction Status Date / Time No Known Allergies Allergy Verified 06/24/24 15:27 Social History Smoking Status: Former smoker Tobacco: How many years used: 55 alcohol intake: current alcohol intake frequency: holidays/special occasions only ROS ROS ED Constitutional Constitutional ED: Reports fatigue; Denies body ache(s), chills, fever(s) or headache(s) Eyes Eyes: Denies change in vision or diplopia ENT ENT ED: Denies rhinorrhea or sore throat Cardiovascular Cardiovascular: Denies chest pain, orthopnea or palpitations Respiratory/Chest Respiratory/Chest: Reports chest congestion, cough, dyspnea on exertion and sputum; Denies orthopnea Gastrointestinal Gastrointestinal: Reports diarrhea; Denies abdominal pain, nausea or vomiting Genitourinary Genitourinary ED: Denies dysuria or hematuria Musculoskeletal Musculoskeletal: Denies back pain or neck pain Integumentary Denies abscess or rash Neurologic Neurologic: Denies headache(s), paresthesias or weakness Psychiatric Psychiatric: Denies anxiety or suicidal thoughts EXAM Physical Exam Const Vital Signs: 06/24/24 15:25 06/24/24 15:25 06/24/24 15:39 Temperature 98 F Temperature Source Temporal Pulse Rate 76 66 Respiratory Rate 16 20 H Respiratory Effort Normal Non-Labored Respiratory Depth Normal Respiratory Pattern Normal Blood Pressure 145/74 H Blood Pressure Mean 97 Pulse Ox 92 87 Oxygen Delivery Method Nasal Cannula Room Air Room Air Oxygen Flow Rate (L/min) 2 06/24/24 16:11 06/24/24 16:25 06/24/24 16:26 Temperature Temperature Source Pulse Rate 63 63 Respiratory Rate 18 16 Respiratory Effort Respiratory Depth Respiratory Pattern Blood Pressure 145/68 H Blood Pressure Mean 93 Pulse Ox 91 90 Oxygen Delivery Method Room Air Room Air Oxygen Flow Rate (L/min) Positive well nourished and well developed Constitutional Narrative: Well-appearing, no distress General Appearance ED: well developed and NAD HEENT Reports moist mucous membranes normocephalic and atraumatic Eyes PERRL and EOMs intact bilaterally Neck full ROM and supple Resp normal respiratory effort Resp Narrative: Expiratory wheezes and rales in the left lung, equal breath sounds bilaterally trachea midline. Cardio regular rate, regular rhythm and no murmurs Rate: Negative for tachycardic GI non-tender and non-distended Auscultation: normoactive bowel sounds Palpation: soft Back/Spine no CVA tenderness General Back: other FROM Extremity normal to inspection and no calf tenderness General Extremety ED: Negative for edema, pulses abnormal or tenderness General Extremity: Negative for edema or pulses abnormal Neuro oriented x3, CN's II-XII intact bilaterally and no sensory deficits noted Sensorium / Orientation: awake and alert Motor Exam: strength 5/5 throughout Psych mental status grossly normal Skin no rashes or lesions noted and no wounds MDM MDM MDM Narrative Medical decision making narrative: She was 87% in triage however here at rest he is between 95 and 98% every time I have evaluated him. He has no dyspnea or chest discomfort at rest. His troponin is normal, the rest of his labs are noted and unremarkable, his chest x-ray 2 views of mitral rotation show no acute pneumonia. Reviewed radiology interpretation. They agree. Improving right lung mass. His COVID swab is positive. He started having symptoms more than 5 days ago so Paxlovid is not indicated. He is oxygenating and breathing well and I think he can be discharged with close outpatient follow-up, advised to rest. He apparently is on Trelegy, and has just not been using it. He was advised to use it and given a prescription for albuterol inhaler to use as needed for shortness of breath as well as a 5-day course of prednisone after the steroids were given here today. I did offer admission for his weakness, he states he is getting around okay and can go home. Lab Data Attestation: I reviewed the patient's lab results. Labs: Laboratory Results - last 24 hr 06/24/24 15:45 WBC 5.2 RBC 4.31 L Hgb 13.9 Hct 42.1 MCV 97.7 H MCH 32.3 H MCHC 33.0 RDW Std Deviation 47.3 H RDW Coeff of Yan 13.0 Plt Count 216 MPV 9.1 Immature Gran % (Auto) 1.000 H Neut % (Auto) 51.7 Lymph % (Auto) 28.9 [place] % (Auto) 13.0 H Eos % (Auto) 5.0 Baso % (Auto) 0.4 Absolute Neuts (auto) 2.7 Absolute Lymphs (auto) 1.51 Nucleated RBC % 0 Sodium 143 Potassium 3.4 L Chloride 110 H Carbon Dioxide 26.0 Anion Gap 7 BUN 34 H Creatinine 1.34 H Estim Creat Clear Calc 49.82 Est GFR (MDRD) Af Amer 66 Est GFR (MDRD) Non-Af 55 L BUN/Creatinine Ratio 25.4 H Glucose 104 Calcium 9.1 Troponin I High Sens 33 Radiography Diagnostic Testing: Clinical Impression(s) from Imaging Studies Chest X-Ray 06/24/24 16:55 IMPRESSION: COPD. Interval improvement in previously noted right upper lobe lesion. No acute cardiopulmonary pathology. Electronically Signed: Gabo Irby MD at 17:42 EDT Reading Location ID and State: [facility] / [place] Tel , Service support , Rhythm Strip Rhythm Strip: Sinus Rhythm Rate: 65 Ectopy: None EKG Initial EKG: Attestation: I personally reviewed and interpreted this EKG as follows: Interpretation: No Acute Injury Pattern, Sinus Arrythmia and AV Block (1st deg) Discharge Plan Triage Chief Complaint: Shortness of Breath ED Provider: Joaquín Ortiz Dx/Rx/DC Orders Clinical Impression: COVID-19, COPD exacerbation Instructions: Coronavirus Disease 2019 (COVID-19): Caring for Yourself or Others Prescriptions: New prednisone 20 mg tablet 40 mg PO DAILY Qty: 10 0RF albuterol sulfate [Ventolin HFA] 90 mcg/actuation HFA aerosol inhaler 1 - 2 puff inhalation Q4H PRN PRN (Reason: Wheezing) Qty: 1 0RF No Action ibuprofen 800 mg tablet 800 mg PO Q12H dicloxacillin 500 mg capsule PO Patient Comments: Take 1 capsule by mouth four times daily for 10 days. [id number] 5-160-25 mg tablet 1 tab PO clopidogrel [Plavix] 75 mg Tablet 75 mg PO DAILY simvastatin 20 mg Tablet 20 mg PO QHS Primary Care Provider: Lyle Ruiz Referrals: Lyle Ruiz MD [Primary Care Provider] - 1 Week if not improving Print Language: Sudanese Disposition Disposition: Home, Self Care
[2024-06-24] MEDS: Albuterol 2.5 MG/3 ML VIAL.NEB. INHALATION (16:24)
[2024-06-24 16:25] VITALS: BP 145/68; PULSE 63; RESP 18; O2SAT 90
[2024-06-24 16:26] VITALS: PULSE 63; RESP 16
[2024-06-24 16:38] LABS: Absolute Lymphocyte Count 1.51 X10^3/uL (0.83-4.51); Absolute Neutrophil Count 2.7 X10^3/uL (2.0-7.7); Basophil# 0.02 X10^3/uL; Basophil% 0.4 % (0-1); Eosinophil# 0.26 X10^3/uL; Hematocrit 42.1 % (40-54); Hemoglobin 13.9 g/dL (13.0-16.5); Lymphocyte # 1.51 X10^3/ul (0.83-4.51); Lymphocyte % 28.9 % (19-41); Mean Corpuscular Hgb 32.3 pg (27.0-32.0); Mean Corpuscular Volume 97.7 fL (80-94); Mean Platelet Vol. 9.1 fl (6.2-12.0); Monocyte# 0.68 X10^3/uL; NRBC Flagged by Analyzer 0 % (0-5); Neutrophil # 2.71 X10^3/uL (2.7-7.7); Neutrophil % 51.7 % (47-70); Platelet Count 216 K/mm3 (150-450); RBC Distribution Width SD 47.3 fl (35.1-43.9); Red Blood Count 4.31 M/mm3 (4.6-6.2); White Blood Count 5.2 K/mm3 (4.4-11.0)
--- NOTE | 2024-06-24 16:55 | RAD_ITS ---
STUDY: X-RAY CHEST REASON FOR EXAM: Male, 78 years old. cough, copd TECHNIQUE: PA and lateral COMPARISON: April 18, 2023 FINDINGS: Lungs are hyperinflated and there is prominence of the interstitial markings in both lower lobes. The previously noted mass density in the right upper lobe is not clearly visualized on current study. There is no demonstrated pleural abnormality. Normal size heart. Normal mediastinum and soledad. Normal visualized pulmonary arteries. Normal visualized aortic arch and descending thoracic aorta. Dorsal spine demonstrates mild spondylosis. Normal visualized ribs, and clavicles. Shoulders demonstrate degenerative changes. There is no demonstrated abnormality of the visualized soft tissue structures of the upper abdomen. RAD/Chest PA and Lateral IMPRESSION: COPD. Interval improvement in previously noted right upper lobe lesion. No acute cardiopulmonary pathology. Electronically Signed: Gabo Irby MD at 17:42 EDT ,
[2024-06-24 17:05] LABS: Anion Gap 7 (5-15); BUN 34 mg/dL (7-18); BUN/Creat Ratio 25.4 RATIO (10-20); Calcium,Total 9.1 mg/dL (8.5-10.1); Chloride 110 mmol/L (98-107); Creatinine, Serum 1.34 mg/dL (0.70-1.30); EST Glomerular Filtration Rate 55 mL/min (>60); Est Glom Filt Rate - Afr Amer 66 mL/min (>60); Estimated Creatinine Clearance 49.82 ml/min; Glucose 104 mg/dL (74-106); Potassium 3.4 mmol/L (3.5-5.1); Sodium Level 143 mmol/L (136-145); Troponin-I HS 33 pg/mL (3.0-78.0)
[2024-06-24] MEDS: MethylPREDNISolone 125 MG/2 ML Vial IV (18:07)
[2024-06-24 18:11] VITALS: BP 149/66; PULSE 72; RESP 19; TEMP 36.7; O2SAT 92
== END 2024-06-24 18:20 | disposition home or self-care (01) ==
PROVIDERS: Emergency Provider Emergency Medicine; PCP Family Medicine; Visit Provider Emergency Medicine
DX: U07.1 COVID-19 (principal); J44.1 Chronic obstructive pulmonary disease with (acute) exacerbation; E11.9 Type 2 diabetes mellitus without complications; G47.33 Obstructive sleep apnea (adult) (pediatric); Z87.891 Personal history of nicotine dependence; Z86.73 Personal history of transient ischemic attack (TIA), and cerebral infarction without residual deficits
CPT/HCPCS: 71046; 80048; 84484; 85025; 87631; 93005; 94640; 96374; 99283; A4216

== ENCOUNTER → 2025-01-19 | Outpatient (CLI) | payer MEDICARE, SELFPAY ==
--- NOTE | 2025-01-19 14:54 | MRI_ITS ---
PROCEDURE: MRI cervical spine without IV contrast REASON FOR EXAM: Pain, radiculopathy TECHNIQUE: Multisequence multiplanar MR images of the cervical spine were obtained without the administration of intravenous contrast. Imaging sequences were performed to best display suspected pathology. COMPARISON: 12/16/2024 FINDINGS: Vertebral body heights are within normal limits. Negative for acute fracture or marrow replacement. Mild degenerative endplate edema at C5-C6. Moderate to advanced multilevel degenerative disc disease. Straightening of the normal lordosis. No significant scoliosis. Spinal cord is of normal caliber, contour and signal intensity. Paraspinal muscle atrophy without evidence of mass. C2-3: No focal disc abnormality. Bilateral facet arthrosis and ligamentum flavum hypertrophy. Mild spinal stenosis. Moderate/severe right and mild left foraminal narrowing. C3-4: Small posterior disc osteophyte complex. Bilateral uncovertebral and facet arthrosis. Mild/moderate spinal stenosis. Severe bilateral foraminal narrowing. C4-5: Small posterior disc osteophyte complex. Bilateral uncovertebral and facet arthrosis. Moderate spinal stenosis. Severe bilateral foraminal narrowing. C5-6: Posterior disc osteophyte complex causing mass effect on the ventral cord. Bilateral uncovertebral and facet arthrosis. Severe spinal stenosis with narrowing of the canal measuring 5 mm in AP dimension. Severe bilateral foraminal narrowing, greater on the left. C6-7: Posterior disc osteophyte complex. Bilateral uncovertebral and facet arthrosis. Moderate spinal stenosis. Moderate bilateral foraminal narrowing. C7-T1: Minimal posterior disc osteophyte complex. No significant spinal stenosis or foraminal narrowing. MRI/Spine Cervical (Routine) IMPRESSION: 1. Acquired multilevel spinal stenosis, greatest at C5-6 categorized as severe. 2. Acquired severe multilevel foraminal narrowing. See level by level comments above. Reading Location: [facility]
== END | disposition home or self-care (01) ==
LOC: MRI 14:47
PROVIDERS: PCP Family Medicine; Referring Provider Student in an Organized Health Care Education/Training Program; Visit Provider Student in an Organized Health Care Education/Training Program
DX: M54.12 Radiculopathy, cervical region (principal)
CPT/HCPCS: 72141

== ENCOUNTER → 2025-03-14 | Outpatient (CLI) | payer MEDICARE, SELFPAY ==
--- NOTE | 2025-03-14 14:45 | MRI_ITS ---
PROCEDURE: SPINE LUMBAR (ROUTINE) 03/14/2025 REASON FOR EXAM: PAIN TECHNIQUE: Multiplanar multisequential imaging was performed without IV contrast administration. FINDINGS: Vertebrae: Unremarkable. Alignment: Normal alignment. Conus Medullaris: T12/L1 L1-2: Disc desiccation but no disc protrusion, spinal stenosis, or neural foraminal stenosis. L2-3: Mild bilobed disc protrusion produces mild spinal stenosis and mild bilateral neural foraminal stenosis. L3-4: Mild bilateral facet hypertrophy and moderate ligamentum flavum hypertrophy. Mild broad disc protrusion produces mild spinal stenosis and mild right neural foraminal stenosis and severe left neural foraminal stenosis with effacement of the left L3 nerve root laterally.. L4-5: Moderate bilateral facet hypertrophy and mild ligamentum flavum hypertrophy. Mild broad disc protrusion produces mild spinal stenosis and mild bilateral neural foraminal stenosis. L5-S1: Mild broad disc osteophyte complex produces mild spinal stenosis and mild bilateral neural foraminal stenosis. Sacrum: Unremarkable. MRI/Spine Lumbar (Routine) IMPRESSION: Diffuse degenerative disc disease as described above. Reading Location: [id number]
== END | disposition home or self-care (01) ==
LOC: MRI 13:54
PROVIDERS: PCP Family Medicine; Referring Provider Student in an Organized Health Care Education/Training Program; Visit Provider Student in an Organized Health Care Education/Training Program
DX: M54.9 Dorsalgia, unspecified (principal)
CPT/HCPCS: 72148